=== PATIENT | male | born 1995 | race Caucasian/White ===

== ENCOUNTER 2016-11-08 10:54 | Observation (INO) | payer OTHER ==
[2016-11-08] MEDS ORDERED: Aspirin Low Dose CHEW TAB* 81 MG PO ONE (11:20)
[2016-11-08] MEDS ORDERED: LORazepam INJ* 2 MG/ML 1 ML VIAL IV PUSH ONE ×2 (11:21→14:30)
--- NOTE | 2016-11-08 11:47 | RAD ---
INDICATION: Chest pressure and numbness COMPARISON: None. TECHNIQUE: Single AP portable view of the chest was obtained. FINDINGS: Image quality is compromised due to the relative inferiority of a portable chest x-ray. The heart and mediastinum exhibit normal size and contour. The lungs are grossly clear. There is no evidence of a large pleural effusion. Visualized bones are normal for the patient's age. IMPRESSION: No radiographic evidence for acute cardiopulmonary abnormality on this portable chest x-ray.
[2016-11-08 12:18] LABS: Hematocrit 46 % (42-52); Hemoglobin 16.6 g/dl (14.0-18.0); Mean Corpuscular HGB Conc 36 g/dl (31-36); Mean Corpuscular Hemoglobin 31 pg (27-31); Mean Corpuscular Volume 85 fL (80-94); Mean Platelet Volume 7 um3 (7.4-10.4); Red Blood Count 5.42 10^6/ul (4.0-5.4); Red Cell Distribution Width 13 % (10.5-15); White Blood Count 10.4 10^3/ul (3.5-10.8)
[2016-11-08 12:31] LABS: Albumin 4.6 g/dL (3.2-5.2); BUN/Creatinine Ratio 14.3 (8-20); Calcium 9.5 mg/dL (8.6-10.3); EGFR African American 107.5 (>60); EGFR Non-African American 83.6 (>60); Potassium 3.4 mmol/L (3.5-5.0); Total Bilirubin 0.6 mg/dL (0.2-1.0); Total Protein 7.6 g/dL (6.4-8.9)
[2016-11-08 12:32] LABS: Comments Flag Yes
--- NOTE | 2016-11-08 18:20 | PN ---
Hospitalist Progress Note HOSPITALIST ADDENDUM Case reviewed and d/w Nhan COLLINS. Mr. Chandra is a 21yo M who presented to ED with c/o chest pain after using cocaine last night. EKG and labs reviewed. Agree with current management.
--- NOTE | 2016-11-08 19:09 | HP ---
ADMISSION HISTORY AND PHYSICAL: DATE OF ADMISSION: 11/08/16 PRIMARY CARE PROVIDER: Ángel Steel MD. ADMITTING PROVIDER: KARINA Flor. SUPERVISING PHYSICIAN: Shruti Durand MD.* (DICTATED BY KARINA FLOR) CHIEF COMPLAINT: Chest pain. HISTORY OF PRESENT ILLNESS: This is an otherwise healthy 21-year-old male who presented to the emergency department with complaints of chest pain after using cocaine. The patient's last cocaine ingestion was at approximately 5:30 this morning and chest pain stated abruptly at 10:30 this morning. He received 1 mg of Ativan in the emergency department with some improvement in his chest pain. He reported some associated shortness of breath and nausea, those symptoms have since ceased. The patient denies any abdominal pain or vomiting. At this time, the patient reports he is still having some mild chest discomfort but it has mostly resolved. He reports that he is otherwise asymptomatic. PAST MEDICAL HISTORY: None. PAST SURGICAL HISTORY: Prior ACL and meniscus repair. HOME MEDICATIONS: None. FAMILY HISTORY: The patient has significant family history of heart disease. Maternal grandparents had premature coronary artery disease. SOCIAL HISTORY: The patient admits to prior cocaine use. This was his third time using and does use occasional alcohol but states it is not generally not in large quantities. He denies any other substance use. REVIEW OF SYSTEMS: As noted above in HPI, otherwise negative. PHYSICAL EXAMINATION GENERAL: This is a pleasant 21-year-old gentleman accompanied by his mother in no acute distress. INITIAL VITALS: Temperature 98.3 degrees Fahrenheit, pulse 100 beats per minute , respiratory rate 20 per minute, oxygen saturation 100% on room air, and blood pressure 162/91 mmHg. Most recent blood pressure from an hour ago had improved to 135/71 with a pulse of 88 beats per minute. HEENT: Head is normocephalic and atraumatic with moist mucous membranes. RESPIRATORY: Lungs are clear to auscultation without wheezes, crackles, or rhonchi. CARDIOVASCULAR: Heart has a regular rate and rhythm without murmurs, rubs, or gallops. ABDOMEN: Abdomen is soft and nontender to palpation. SKIN: Limited exam shows no concerning rashes or lesions. EXTREMITIES: No lower extremity edema. LABORATORY DATA: CBC shows white blood cell count of 10,400, hemoglobin of 16.6 g/dL, and platelet count of 277,000. Comprehensive metabolic panel shows a sodium of 132 mmol/L, potassium 3.4 mmol/L, serum bicarb of 24, BUN of 16, creatinine 1.12. Random glucose of 95 mg/dL. Lactic acid of 2.7. Initial troponin negative at 0. IMAGING: EKG shows sinus tachycardia without ischemic changes. Chest x-ray shows no acute disease. ASSESSMENT AND PLAN: This is a 21-year-old gentleman who has been otherwise healthy, is using cocaine with sudden onset chest pain. No EKG changes or elevated troponin. He is admitted for observation due to continued symptoms. 1. Chest pain secondary to cocaine abuse - no changes on initial EKG and initial troponin is negative. The patient's chest pain has improved but is still present slightly. I plan to cycle additional troponins and repeat an EKG. To give 1 additional mg of Ativan. If troponins remain negative, chest pain improves without EKG changes, we will plan to discharge home later this evening. 2. Cocaine abuse. The patient was counseled on potential life threatening effects of this drug but he is strongly discouraged from further use. 3. Code status - the patient is a full code. 4. Healthcare proxy is his mother. 5. DVT prophylaxis. The patient is at low risk and will not initiate any specific prophylactic measures other than encouraging regular ambulation. DISPOSITION: The patient is being admitted to observation status. Anticipate potential discharge for later this evening or tomorrow morning. KARINA FLOR CC: Ángel Steel MD * [id number]/[facility] #: [id number] JUNIOR
[2016-11-08 19:34] VITALS: BP 123/70
[2016-11-08 19:50] LABS: Benzodiazepine Urine Screen None Detected (None Detect)
--- NOTE | 2016-11-09 08:52 | DS ---
DISCHARGE SUMMARY: DATE OF ADMISSION: 11/08/16 DATE OF DISCHARGE: 11/08/16 PRIMARY CARE PROVIDER: Dr. Lee Steel. DISCHARGING PROVIDER: KARINA Flor. SUPERVISING PHYSICIAN: Dr. Miles Durand. * (DICTATED BY KARINA FLOR) PRIMARY DISCHARGE DIAGNOSIS: Chest pain secondary to cocaine use, without evidence of ischemia. DISCHARGE MEDICATIONS: Valtrex 500 mg p.o. daily as needed for herpes outbreak. HOSPITAL IMAGING: EKG shows normal sinus rhythm. Repeat EKG shows no ischemic changes. HOSPITAL COURSE: Please refer to H and P dictated earlier today. This is an otherwise healthy 21-year-old gentleman who presented to the emergency department with complaints of chest pain and admitted, and cocaine abuse. The patient's chest pain was persistent despite IV Ativan in the emergency department and request for admission for a period of observation. Initial troponin and EKG were benign. Serial troponin remains negative and repeat EKG remains negative for any ischemic changes. The patient received an additional dose of IV Ativan and his chest pain resolved. He was observed for a period of approximately 8 hours, at which point his chest pain did not return. The patient was counseled extensively in regards to substance use and his mother was present. DISPOSITION: The patient is being discharged home with his mother. He was counseled to please abstain from any further illicit substance abuse. No further followup is indicated at this time. We would recommend followup with his primary care provider regarding this hospital admission. KARINA FLOR CC: Dr. Lee Steel [id number]/[facility] #: [id number] [facility]
--- NOTE | 2016-11-09 22:18 | ED ---
Rodolfo Frias Rebecca, scribed for Dav Caputo MD on 11/08/16 at 1155 . HPI Chest Pain - HPI Summary HPI Summary: Pt is a 21 y/o M who presents to ED c/o CP. Pain began suddenly at 1045 this morning and has been constant since onset. Pain is midsternal without radiation , characterized as sharp and heavy and currently ranked 3/10. Sx aggravated and alleviated by nothing. Additionally c/o confusion/"foggy", near syncope and diffuse numbness. Denies LOC. Pt reports snorting cocaine last night, with the last use at 0530 this morning. Unsure of the exact amount, but he says it was " a lot." Has used cocaine 2x prior. He was also consuming EtOH last night, with the last drink at 0030 this morning. - History of Current Complaint Chief Complaint: EDChestPainROMI Time Seen by Provider: 11/08/16 11:20 Hx Obtained From: Patient Onset/Duration: Started Hours Ago - 1 hour ago, Still Present Time of Onset: 10:45 Timing: Constant Initial Severity: Moderate Current Severity: Mild Pain Intensity: 3 Pain Scale Used: 0-10 Numeric Chest Pain Location: Mid Sternal Chest Pain Radiates: No Aggravating Factor(s): Nothing Alleviating Factor(s): Nothing Associated Signs and Symptoms: Positive: Chest Pain, Numbness - Diffuse, Syncope - Near syncope; Denies LOC, Other: - confusion/"foggy" - Allergy/Home Medications Allergies/Adverse Reactions: Allergies Allergy/AdvReac Type Severity Reaction Status Date / Time No Known Allergies Allergy Verified 06/11/16 09:17 PMH/Surg Hx/FS Hx/Imm Hx Endocrine/Hematology History: Denies: Hx Diabetes, Hx Thyroid Disease Cardiovascular History: Denies: Hx Hypercholesterolemia, Hx Hypertension, Hx Pacemaker/ICD, Hx Peripheral Vascular Disease Respiratory History: Denies: Hx Asthma, Hx Chronic Obstructive Pulmonary Disease (COPD) GI History: Denies: Hx Ulcer History: Denies: Hx Renal Disease Musculoskeletal History: Denies: Hx Arthritis, Hx Rheumatoid Arthritis, Hx Osteoporosis, Hx Scoliosis Sensory History: Denies: Hx Cataracts, Hx Contacts or Glasses, Hx Glaucoma, Hx Hearing Aid Opthamlomology History: Denies: Hx Cataracts, Hx Contacts or Glasses, Hx Glaucoma Neurological History: Reports: Hx Headaches - 2 years ago, 1 week to recover Denies: Other Neuro Impairments/Disorders Psychiatric History: Denies: Hx Anxiety, Hx Depression, Hx Panic Disorder - Surgical History Surgery Procedure, Year, and Place: meniscus repair right knee 2013. ACL REPAIR RIGHT KNEE 2015 Infectious Disease History: No Infectious Disease History: Denies: Hx Clostridium Difficile, Hx Hepatitis, Hx Human Immunodeficiency Virus (HIV), Hx of Known/Suspected MRSA, Hx Shingles, Hx Tuberculosis, Hx Known/ Suspected VRE, Hx Known/Suspected VRSA, History Other Infectious Disease, Traveled Outside the [place] in Last 30 Days - Family History Known Family History: Positive: Cardiac Disease - Social History Alcohol Use: Occasionally Substance Use Type: Reports: Cocaine - 3x, Marijuana Smoking Status (MU): Never Smoked Tobacco Have You Smoked in the Last Year: No Review of Systems Negative: Fever, Chills Negative: Blurred Vision, Erythema Negative: Sore Throat Positive: Chest Pain - midsternal Negative: Abdominal Pain, Vomiting, Nausea Negative: dysuria, hematuria Negative: Myalgia, Edema Negative: Rash Neurological: Other - Confusion/"foggy" Positive: Numbness - Diffuse, Syncope - Near syncope; Negative LOC All Other Systems Reviewed And Are Negative: Yes Physical Exam - Summary Physical Exam Summary: Constitutional: Well-developed, Well-nourished, Alert, Hypertensive. (-) Distressed Skin: Warm, Dry HENT: Eyes: Conjunctiva normal Neck: Musculoskeletal ROM normal neck. (-) JVD, (-) Stridor, (-) Tracheal deviation Cardio: Rhythm regular, rate tachycardic, Heart sounds normal; Intact distal pulses; The pedal pulses are 2+ and symmetric. Radial pulses are 2+ and symmetric. (-) Murmur Pulmonary/Chest wall: Effort normal. (-) Respiratory distress, (-) Wheezes, (-) Rales Abd: Soft, (-) Tenderness, (-) Distension, (-) Guarding, (-) Rebound Musculoskeletal: (-) Edema Lymph: (-) Cervical adenopathy Neuro: Alert, Oriented x3 Psych: Mood and affect Normal Triage Information Reviewed: Yes Vital Signs On Initial Exam: Initial Vitals Temp Pulse Resp BP Pulse Ox 98.3 F 100 20 162/91 100 11/08/16 11:16 11/08/16 11:16 11/08/16 11:16 02/11/17 11:16 11/08/16 11:16 Vital Signs Reviewed: Yes Diagnostics - Vital Signs Vital Signs Temp Pulse Resp BP Pulse Ox 11/08/16 11:16 98.3 F 100 20 162/91 100 - Laboratory Result Diagrams: 11/08/16 12:05 11/08/16 12:05 Lab Statement: Any lab studies that have been ordered have been reviewed, and results considered in the medical decision making process. - Radiology CXR Xray Interpretation: No Acute Changes - No radiographic evidence for acute cardiopulmonary abnormality on this portable chest x-ray. Radiology Interpretation Completed By: Radiologist - EKG 1054 Cardiac Rate: Tachycardia - 111 bpm EKG Rhythm: Sinus Tachycardia EKG Interpretation: No STEMI Re-Evaluation - Re-Evaluation First Eval Re-Evaluation Time: 12:52 Change: Improved Comment: Sx have improved, CP is now 2/10. Chest Pain Course/Dx - Course Assessment/Plan: Pt is a 21 y/o M who presents to ED with a CC of CP for 1 hour s/p cocaine use. Additionally c/o confusion/"foggy", near syncope and diffuse numbness. Denies LOC. CXR reveals no acute pathology. Discussed care of pt with Dr. Spivey, hospitalist, who accepts pt for admission. Pt will be admitted with a dx of cocaine-induced CP. - Diagnoses Provider Diagnoses: Cocaine-induced chest pain - Provider Notifications Discussed Care Of Patient With: Dr. Spivey, hospitalist, who accepts pt for admission. Time Discussed With Above Provider: 12:49 Discharge - Discharge Plan Condition: Good Disposition: ADMITTED TO [facility] documentation as recorded by the Rodolfo fish Rebecca accurately reflects the service I personally performed and the decisions made by me, Dav Caputo MD.
== END 2016-11-08 20:15 | disposition home or self-care (01) ==
LOC: ED 10:54 → MEDTELE 12:50
PROVIDERS: ADMIT Internal Medicine; ATTEND Internal Medicine
DX: R07.9 Chest pain, unspecified (principal); F14.10 Cocaine abuse, uncomplicated; R00.0 Tachycardia, unspecified; R41.0 Disorientation, unspecified
CPT/HCPCS: 36415; 71010; 80053; 80307; 83605; 84484; 85025; 93005; 96374; 96376; 99283; A9270-GY; G0378; J2060

== ENCOUNTER 2016-11-13 10:45 | Emergency (ER) | payer OTHER ==
[2016-11-13] MEDS ORDERED: Aspirin Low Dose CHEW TAB* 81 MG PO ONE (11:46)
[2016-11-13 11:57] LABS: Hematocrit 51 % (42-52); Hemoglobin 17.5 g/dl (14.0-18.0); Mean Corpuscular HGB Conc 34 g/dl (31-36); Mean Corpuscular Hemoglobin 30 pg (27-31); Mean Corpuscular Volume 87 fL (80-94); Mean Platelet Volume 7 um3 (7.4-10.4); Red Blood Count 5.88 10^6/ul (4.0-5.4); Red Cell Distribution Width 13 % (10.5-15); White Blood Count 10.6 10^3/ul (3.5-10.8)
[2016-11-13 12:09] LABS: ALT 23 U/L (7-52); AST 40 U/L (13-39); Albumin 5.1 g/dL (3.2-5.2); Alkaline Phosphatase 52 U/L (34-104); Anion Gap 8 mmol/L (2-11); Blood Urea Nitrogen 14 mg/dL (6-24); CO2 Carbon Dioxide 27 mmol/L (22-32); Calcium 10.2 mg/dL (8.6-10.3); Chloride 100 mmol/L (101-111); Creatine Kinase 1110 U/L (10-223); EGFR African American 112.1 (>60); EGFR Non-African American 87.2 (>60); Globulin 3.1 g/dL (2-4); Glucose 82 mg/dL (70-100); Potassium 3.5 mmol/L (3.5-5.0); Sodium 135 mmol/L (133-145); Total Protein 8.2 g/dL (6.4-8.9)
[2016-11-13] MEDS: NS 0.9% 1000 ML* 2,000 ML IV ONE ×2 (12:09→13:30)
[2016-11-13 12:13] LABS: Benzodiazepine Urine Screen None Detected (None Detect)
[2016-11-13] MEDS ORDERED: LORazepam INJ* 2 MG/ML 1 ML VIAL IV PUSH ONE (12:19)
[2016-11-13] MEDS ORDERED: NS 0.9% 1000 ML* 1,000 ML IV ONE (12:20)
[2016-11-13] MEDS ORDERED: LORazepam INJ* 2 MG/ML 1 ML VIAL ONE (12:21)
--- NOTE | 2016-11-13 12:45 | RAD ---
HISTORY: Chest pain COMPARISONS: November 08, 2016 VIEWS:1: Single frontal portable view of the chest at 12:15 PM FINDINGS: LINES AND TUBES: None. CARDIOMEDIASTINAL SILHOUETTE: The cardiomediastinal silhouette is normal for portable technique. PLEURA: The costophrenic angles are sharp. No pleural abnormalities are noted. LUNG PARENCHYMA: The lungs are clear. ABDOMEN: The upper abdomen is clear. There is no subphrenic gas. BONES AND SOFT TISSUES: No bone or soft tissue abnormalities are noted. IMPRESSION: NO ACTIVE CARDIOPULMONARY DISEASE.
[2016-11-13 12:52] LABS: Alcohol < 10 mg/dL (<10)
--- NOTE | 2016-11-13 15:51 | ED ---
Rob Frias Matthew, scribed for Musa Monroe MD on 11/13/16 at 1219 . HPI Chest Pain - HPI Summary HPI Summary: A 21 y/o male presents to the ED with constant chest pain since 09:00 this morning. The patient states that he did cocaine at 03:00 this morning. The chest pain is rated 4/10 in severity, described as burning at onset and dull currently, and minimally radiates into the left arm. Associated symptoms include SOB and fatigue. The patient denies back pain, vomiting, nausea, and diaphoresis. Since onset, the chest pain has partially subsided. The pain is unaffected by deep breaths. He has been doing cocaine 2x weekly for the last 3 months. He has also been having intermittent epistaxis. - History of Current Complaint Chief Complaint: EDChestPainROMI Time Seen by Provider: 11/13/16 11:28 Hx Obtained From: Patient Onset/Duration: Started Hours Ago, Atraumatic, Still Present Timing: Constant Initial Severity: Moderate Current Severity: Mild Pain Intensity: 4 Pain Scale Used: 0-10 Numeric Chest Pain Radiates: Yes Chest Pain Radiates To:: Arm - LT; Minimally Character: Burning, Dull/Aching Aggravating Factor(s): Nothing Alleviating Factor(s): Nothing Associated Signs and Symptoms: Positive: Chest Pain, Shortness of Breath, Other : - Fatigue. Negative: Diaphoresis, Nausea, Back Pain - Allergy/Home Medications Allergies/Adverse Reactions: Allergies Allergy/AdvReac Type Severity Reaction Status Date / Time No Known Allergies Allergy Verified 06/11/16 09:17 PMH/Surg Hx/FS Hx/Imm Hx Endocrine/Hematology History: Denies: Hx Diabetes, Hx Thyroid Disease Cardiovascular History: Denies: Hx Hypercholesterolemia, Hx Hypertension, Hx Pacemaker/ICD, Hx Peripheral Vascular Disease Respiratory History: Denies: Hx Asthma, Hx Chronic Obstructive Pulmonary Disease (COPD) GI History: Denies: Hx Ulcer History: Denies: Hx Renal Disease Musculoskeletal History: Denies: Hx Arthritis, Hx Rheumatoid Arthritis, Hx Osteoporosis, Hx Scoliosis Sensory History: Denies: Hx Cataracts, Hx Contacts or Glasses, Hx Glaucoma, Hx Hearing Aid Opthamlomology History: Denies: Hx Cataracts, Hx Contacts or Glasses, Hx Glaucoma Neurological History: Reports: Hx Headaches - 2 years ago, 1 week to recover Denies: Other Neuro Impairments/Disorders Psychiatric History: Denies: Hx Anxiety, Hx Depression, Hx Panic Disorder - Surgical History Surgery Procedure, Year, and Place: meniscus repair right knee 2013. ACL REPAIR RIGHT KNEE 2015 Infectious Disease History: No Infectious Disease History: Denies: Hx Clostridium Difficile, Hx Hepatitis, Hx Human Immunodeficiency Virus (HIV), Hx of Known/Suspected MRSA, Hx Shingles, Hx Tuberculosis, Hx Known/ Suspected VRE, Hx Known/Suspected VRSA, History Other Infectious Disease, Traveled Outside the [place] in Last 30 Days - Family History Known Family History: Positive: Cardiac Disease - Social History Alcohol Use: Occasionally Alcohol Amount: 4-5 drinks 1-2 days a week Substance Use Type: Reports: Cocaine, Marijuana Substance Use Comment - Amount & Last Used: 11/13/16 Smoking Status (MU): Never Smoked Tobacco Have You Smoked in the Last Year: No Review of Systems Positive: Fatigue. Negative: Skin Diaphoresis Eyes: Negative ENT: Negative Positive: Chest Pain Positive: Shortness Of Breath Positive: Nausea. Negative: Vomiting Genitourinary: Negative Musculoskeletal: Negative Negative: Myalgia - back pain Skin: Negative Neurological: Negative Psychological: Normal All Other Systems Reviewed And Are Negative: Yes Physical Exam - Summary Physical Exam Summary: The patient is well-nourished in no acute distress and in no acute pain. The skin is warm and dry and skin color reflects adequate perfusion. HEENT: The head is normocephalic and atraumatic. The pupils are equal and reactive. The conjunctivae are clear and without drainage. Nares are patent and without drainage. Mouth reveals moist mucous membranes and the throat is without erythema and exudate. The external ears are intact. The ear canals are patent and without drainage. The tympanic membranes are intact. Neck is supple with full range of motion and non-tender. There are no carotid bruits. There is no neck vein distension. Respiratory: Chest is non-tender. Lungs are clear to auscultation and breath sounds are symmetrical and equal. Cardiovascular: Hear is regular rate and rhythm. There is no murmur or rub auscultated. There is no peripheral edema and pulses are symmetrical and equal. Abdomen: The abdomen is soft and non-tender. There are normal bowel sounds heard in all four quadrants and there is no organomegaly palpated. No CVA tenderness. Musculoskeletal: There is no back pain noted. Extremities are non-tender with full range of motion. There is good capillary refill. There is no peripheral edema or calf tenderness elicited. Neurological: Patient is alert and oriented to person, place and time. The patient has symmetrical motor strength in all four extremities. Cranial nerves are grossly intact. Deep tendon reflexes are symmetrical and equal in all four extremities. Psychiatric: The patient has an appropriate affect and does not exhibit any anxiety or depression. Triage Information Reviewed: Yes Vital Signs On Initial Exam: Initial Vitals Temp Pulse Resp BP Pulse Ox 98.2 F 147 20 197/106 98 11/13/16 10:46 11/13/16 10:46 11/13/16 10:46 11/13/16 10:46 11/13/16 10:46 Vital Signs Reviewed: Yes - Citlali Coma Scale Coma Scale Total: 15 Diagnostics - Vital Signs Vital Signs Temp Pulse Resp BP Pulse Ox 11/13/16 11:15 98.2 F 92 22 154/95 100 11/13/16 10:46 98.2 F 147 20 197/106 98 - Laboratory Lab Results: Lab Results 11/13/16 11/13/16 11/13/16 Range/Units 11:02 11:02 11:02 WBC 10.6 (3.5-10.8) 10^3/ul RBC 5.88 H (4.0-5.4) 10^6/ul Hgb 17.5 (14.0-18.0) g/dl Hct 51 (42-52) % MCV 87 (80-94) fL MCH 30 (27-31) pg MCHC 34 (31-36) g/dl RDW 13 (10.5-15) % Plt Count 351 (150-450) 10^3/ul MPV 7 L (7.4-10.4) um3 Neut % (Auto) 66.0 (38-83) % Lymph % (Auto) 26.4 (25-47) % Caldwell % (Auto) 6.5 (1-9) % Eos % (Auto) 0.3 (0-6) % Baso % (Auto) 0.8 (0-2) % Absolute Neuts (auto) 7.0 (1.5-7.7) 10^3/ul Absolute Lymphs (auto) 2.8 (1.0-4.8) 10^3/ul Absolute Monos (auto) 0.7 (0-0.8) 10^3/ul Absolute Eos (auto) 0 (0-0.6) 10^3/ul Absolute Basos (auto) 0.1 (0-0.2) 10^3/ul Absolute Nucleated RBC 0.02 10^3/ul Nucleated RBC % 0.2 Sodium 135 (133-145) mmol/L Potassium 3.5 (3.5-5.0) mmol/L Chloride 100 L (101-111) mmol/L Carbon Dioxide 27 (22-32) mmol/L Anion Gap 8 (2-11) mmol/L BUN 14 (6-24) mg/dL Creatinine 1.08 (0.67-1.17) mg/dL Est GFR ( Amer) 112.1 (>60) Est GFR (Non-Af Amer) 87.2 (>60) BUN/Creatinine Ratio 13.0 (8-20) Glucose 82 (70-100) mg/dL Lactic Acid 1.2 (0.5-2.0) mmol/L Calcium 10.2 (8.6-10.3) mg/dL Total Bilirubin 0.80 (0.2-1.0) mg/dL AST 40 H (13-39) U/L ALT 23 (7-52) U/L Alkaline Phosphatase 52 (34-104) U/L Total Creatine Kinase 1110 H (10-223) U/L Troponin I 0.00 (<0.04) ng/mL Total Protein 8.2 (6.4-8.9) g/dL Albumin 5.1 (3.2-5.2) g/dL Globulin 3.1 (2-4) g/dL Albumin/Globulin Ratio 1.6 (1-3) Urine Opiates Screen (None Detect) Ur Barbiturates Screen (None Detect) Ur Phencyclidine Scrn (None Detect) Ur Amphetamines Screen (None Detect) U Benzodiazepines Scrn (None Detect) Urine Cocaine Screen (None Detect) U Cannabinoids Screen (None Detect) 11/13/16 Range/Units 11:02 WBC (3.5-10.8) 10^3/ul RBC (4.0-5.4) 10^6/ul Hgb (14.0-18.0) g/dl Hct (42-52) % MCV (80-94) fL MCH (27-31) pg MCHC (31-36) g/dl RDW (10.5-15) % Plt Count (150-450) 10^3/ul MPV (7.4-10.4) um3 Neut % (Auto) (38-83) % Lymph % (Auto) (25-47) % Caldwell % (Auto) (1-9) % Eos % (Auto) (0-6) % Baso % (Auto) (0-2) % Absolute Neuts (auto) (1.5-7.7) 10^3/ul Absolute Lymphs (auto) (1.0-4.8) 10^3/ul Absolute Monos (auto) (0-0.8) 10^3/ul Absolute Eos (auto) (0-0.6) 10^3/ul Absolute Basos (auto) (0-0.2) 10^3/ul Absolute Nucleated RBC 10^3/ul Nucleated RBC % Sodium (133-145) mmol/L Potassium (3.5-5.0) mmol/L Chloride (101-111) mmol/L Carbon Dioxide (22-32) mmol/L Anion Gap (2-11) mmol/L BUN (6-24) mg/dL Creatinine (0.67-1.17) mg/dL Est GFR ( Amer) (>60) Est GFR (Non-Af Amer) (>60) BUN/Creatinine Ratio (8-20) Glucose (70-100) mg/dL Lactic Acid (0.5-2.0) mmol/L Calcium (8.6-10.3) mg/dL Total Bilirubin (0.2-1.0) mg/dL AST (13-39) U/L ALT (7-52) U/L Alkaline Phosphatase (34-104) U/L Total Creatine Kinase (10-223) U/L Troponin I (<0.04) ng/mL Total Protein (6.4-8.9) g/dL Albumin (3.2-5.2) g/dL Globulin (2-4) g/dL Albumin/Globulin Ratio (1-3) Urine Opiates Screen None detected (None Detect) Ur Barbiturates Screen None detected (None Detect) Ur Phencyclidine Scrn None detected (None Detect) Ur Amphetamines Screen None detected (None Detect) U Benzodiazepines Scrn None detected (None Detect) Urine Cocaine Screen Presumptive positive H (None Detect) U Cannabinoids Screen Presumptive positive H (None Detect) Result Diagrams: 11/13/16 11:02 11/13/16 11:02 Lab Statement: Any lab studies that have been ordered have been reviewed, and results considered in the medical decision making process. - Radiology CXR Xray Interpretation: No Acute Changes - IMPRESSION: NO ACTIVE CARDIOPULMONARY DISEASE. Radiology Interpretation Completed By: Radiologist - EKG 10:49 Cardiac Rate: Tachycardia - 117 bpm EKG Rhythm: Sinus Tachycardia 14:54 Cardiac Rate: NL - 80 bpm EKG Rhythm: Sinus Rhythm Chest Pain Course/Dx - Course Assessment/Plan: A 21 y/o male presents to the ED with constant chest pain since 09:00 this morning. The patient snorted cocaine at 3:00 this morning and had chest pain approximately 6 hours later at 09:00. Associated symptoms include SOB and fatigue. The patient denies back pain, vomiting, nausea, and diaphoresis. CXR shows no active cardiopulmonary disease. EKG shows sinus tachycardia at 117 bpm. Social work was consulted for this case. The patient's second troponin was 0.00 and the EKG showed NSR at 80 bpm. The patient will be discharged home and follow-up with his PCP. - Chest Pain Differential Diagnosis/HQI/PQRI: Acute RI, Other: - cocaine abuse - Diagnoses Provider Diagnoses: Chest pain, Cocaine abuse Discharge - Discharge Plan Condition: Stable Disposition: HOME Patient Education Materials: Chest Pain (ED), Cocaine Abuse (ED) Referrals: Lee Steel MD [Primary Care Provider] - 2 Days Additional Instructions: Please follow-up with your primary care physician. The documentation as recorded by the Rob fish Matthew accurately reflects the service I personally performed and the decisions made by , Musa Monroe MD.
[2016-11-13 16:02] VITALS: BP 124/67
== END 2016-11-13 16:00 | disposition home or self-care (01) ==
LOC: ED 10:45
DX: R07.9 Chest pain, unspecified (principal); F14.10 Cocaine abuse, uncomplicated; R06.02 Shortness of breath; R53.83 Other fatigue
CPT/HCPCS: 36415; 71010; 80053; 80307; 80320; 82550; 82553; 83605; 83880; 84484; 85025; 93005; 96361; 96374; 99283; A9270-GY; G0480; J2060

== ENCOUNTER 2016-12-21 17:39 | Emergency (ER) | payer OTHER ==
[2016-12-21] MEDS ORDERED: Ketorolac INJ* 30 MG/ML 1 ML VIAL IV ONE (18:08)
[2016-12-21 18:25] LABS: Hematocrit 45 % (42-52); Hemoglobin 15.8 g/dl (14.0-18.0); Mean Corpuscular HGB Conc 35 g/dl (31-36); Mean Corpuscular Hemoglobin 30 pg (27-31); Mean Corpuscular Volume 87 fL (80-94); Mean Platelet Volume 7 um3 (7.4-10.4); Red Blood Count 5.21 10^6/ul (4.0-5.4); Red Cell Distribution Width 14 % (10.5-15); White Blood Count 8.9 10^3/ul (3.5-10.8)
--- NOTE | 2016-12-21 18:29 | RAD ---
INDICATION: Chest pain in a former cocaine user. COMPARISON: Most recent comparison chest x-rays dated November 13, 2016 TECHNIQUE: PA and lateral views of the chest were obtained. FINDINGS: The heart and mediastinum are normal in size and contour. The lungs are grossly clear. There is no evidence of large pleural effusion. Visualized bones are normal for the patient's age. There is no radiographic evidence of free air beneath the diaphragm IMPRESSION: No radiographic evidence of acute cardiopulmonary disease.
[2016-12-21 18:42] LABS: Albumin 4.6 g/dL (3.2-5.2); BUN/Creatinine Ratio 11.3 (8-20); Calcium 9.3 mg/dL (8.6-10.3); EGFR African American 104.3 (>60); EGFR Non-African American 81.1 (>60); Globulin 2.5 g/dL (2-4); Potassium 3.8 mmol/L (3.5-5.0); Total Bilirubin 0.5 mg/dL (0.2-1.0); Total Protein 7.1 g/dL (6.4-8.9)
[2016-12-21 20:37] VITALS: BP 137/78
--- NOTE | 2016-12-23 07:34 | ED ---
Eliana Frias Erika, scribed for Max Kay MD on 12/21/16 at 1912 . HPI Chest Pain - HPI Summary HPI Summary: Patient is a 21-year-old male presenting to the ED with a CC of left anterior chest pain starting at 16:00 today. Onset occurred while patient was walking into a store. Patient describes the pain as sharp at first, and now aching/ dull. Pain was not aggravated by anything. Associated symptoms include lightheadedness and SOB. Patient denies nausea and diaphoresis. Patient reports that he felt like this may be a panic attack, but he has never had one before. Patient has a Hx substance use - patient was seen here about 5 weeks ago after cocaine abuse. He is concerned about lasting effects from the cocaine. He denies any recent cocaine use. Patient does not take any medication. - History of Current Complaint Chief Complaint: EDChestPainROMI Time Seen by Provider: 12/21/16 17:50 Hx Obtained From: Patient, Family/Resolution Manager - Mother Onset/Duration: Started Hours Ago, Atraumatic, Still Present Timing: Constant Current Severity: Moderate Pain Intensity: 6 Pain Scale Used: 0-10 Numeric Chest Pain Location: Left Anterior Character: Dull/Aching, Sharp/Stabbing Associated Signs and Symptoms: Positive: Shortness of Breath, Lightheadedness. Negative: Diaphoresis, Nausea - Allergy/Home Medications Allergies/Adverse Reactions: Allergies Allergy/AdvReac Type Severity Reaction Status Date / Time No Known Allergies Allergy Verified 12/21/16 17:42 PMH/Surg Hx/FS Hx/Imm Hx Endocrine/Hematology History: Denies: Hx Diabetes, Hx Thyroid Disease Cardiovascular History: Denies: Hx Hypercholesterolemia, Hx Hypertension, Hx Pacemaker/ICD, Hx Peripheral Vascular Disease Respiratory History: Denies: Hx Asthma, Hx Chronic Obstructive Pulmonary Disease (COPD) GI History: Denies: Hx Ulcer History: Denies: Hx Renal Disease Musculoskeletal History: Denies: Hx Arthritis, Hx Rheumatoid Arthritis, Hx Osteoporosis, Hx Scoliosis Sensory History: Denies: Hx Cataracts, Hx Contacts or Glasses, Hx Glaucoma, Hx Hearing Aid Opthamlomology History: Denies: Hx Cataracts, Hx Contacts or Glasses, Hx Glaucoma Neurological History: Reports: Hx Headaches - 2 years ago, 1 week to recover Denies: Other Neuro Impairments/Disorders Psychiatric History: Denies: Hx Anxiety, Hx Depression, Hx Panic Disorder - Surgical History Surgery Procedure, Year, and Place: meniscus repair right knee 2013. ACL REPAIR RIGHT KNEE 2014 Infectious Disease History: No Infectious Disease History: Denies: Hx Clostridium Difficile, Hx Hepatitis, Hx Human Immunodeficiency Virus (HIV), Hx of Known/Suspected MRSA, Hx Shingles, Hx Tuberculosis, Hx Known/ Suspected VRE, Hx Known/Suspected VRSA, History Other Infectious Disease, Traveled Outside the [place] in Last 30 Days - Family History Known Family History: Positive: Cardiac Disease - Social History Alcohol Use: Occasionally Alcohol Amount: 4-5 drinks 1-2 days a week Substance Use Type: Reports: Cocaine, Marijuana Substance Use Comment - Amount & Last Used: 11/13/16 last cocaine Hx Tobacco Use: No Smoking Status (MU): Never Smoked Tobacco Have You Smoked in the Last Year: No Review of Systems Negative: Skin Diaphoresis Positive: Chest Pain Positive: Shortness Of Breath Negative: Nausea Neurological: Other - lightheadedness All Other Systems Reviewed And Are Negative: Yes Physical Exam Triage Information Reviewed: Yes Vital Signs On Initial Exam: Initial Vitals Temp Pulse Resp BP Pulse Ox 97.5 F 110 20 149/85 100 12/21/16 17:42 12/21/16 17:42 12/21/16 17:42 12/21/16 17:42 12/21/16 17:42 Vital Signs Reviewed: Yes Appearance: Positive: Well-Appearing, No Pain Distress Skin: Positive: Warm, Skin Color Reflects Adequate Perfusion, Dry Head/Face: Positive: Normal Head/Face Inspection Eyes: Positive: Normal ENT: Positive: Normal ENT inspection Neck: Positive: Supple, Nontender Respiratory/Lung Sounds: Positive: Clear to Auscultation, Breath Sounds Present Cardiovascular: Positive: Tachycardia, Other - No murmur with valsalva or squat maneuvers Abdomen Description: Positive: Nontender, Soft Bowel Sounds: Positive: Present Musculoskeletal: Positive: Normal Neurological: Positive: Normal Psychiatric: Positive: Affect/Mood Appropriate Diagnostics - Vital Signs Vital Signs Temp Pulse Resp BP Pulse Ox 12/21/16 17:42 97.5 F 110 20 149/85 100 - Laboratory Lab Results: Lab Results 12/21/16 12/21/16 12/21/16 Range/Units 17:55 17:55 17:55 WBC 8.9 (3.5-10.8) 10^3/ul RBC 5.21 (4.0-5.4) 10^6/ul Hgb 15.8 (14.0-18.0) g/dl Hct 45 (42-52) % MCV 87 (80-94) fL MCH 30 (27-31) pg MCHC 35 (31-36) g/dl RDW 14 (10.5-15) % Plt Count 274 (150-450) 10^3/ul MPV 7 L (7.4-10.4) um3 Neut % (Auto) 68.3 (38-83) % Lymph % (Auto) 23.5 L (25-47) % [place] % (Auto) 6.3 (1-9) % Eos % (Auto) 0.7 (0-6) % Baso % (Auto) 1.2 (0-2) % Absolute Neuts (auto) 6.1 (1.5-7.7) 10^3/ul Absolute Lymphs (auto) 2.1 (1.0-4.8) 10^3/ul Absolute Monos (auto) 0.6 (0-0.8) 10^3/ul Absolute Eos (auto) 0.1 (0-0.6) 10^3/ul Absolute Basos (auto) 0.1 (0-0.2) 10^3/ul Absolute Nucleated RBC 0.01 10^3/ul Nucleated RBC % 0.2 D-Dimer, Quantitative (Less Than 230) ng/mL Sodium 138 (133-145) mmol/L Potassium 3.8 (3.5-5.0) mmol/L Chloride 102 (101-111) mmol/L Carbon Dioxide 26 (22-32) mmol/L Anion Gap 10 (2-11) mmol/L BUN 13 (6-24) mg/dL Creatinine 1.15 (0.67-1.17) mg/dL Est GFR ( Amer) 104.3 (>60) Est GFR (Non-Af Amer) 81.1 (>60) BUN/Creatinine Ratio 11.3 (8-20) Glucose 98 (70-100) mg/dL Lactic Acid 2.1 H* (0.5-2.0) mmol/L Calcium 9.3 (8.6-10.3) mg/dL Total Bilirubin 0.50 (0.2-1.0) mg/dL AST 33 (13-39) U/L ALT 26 (7-52) U/L Alkaline Phosphatase 49 (34-104) U/L Troponin I 0.00 (<0.04) ng/mL Total Protein 7.1 (6.4-8.9) g/dL Albumin 4.6 (3.2-5.2) g/dL Globulin 2.5 (2-4) g/dL Albumin/Globulin Ratio 1.8 (1-3) 12/21/16 Range/Units 17:55 WBC (3.5-10.8) 10^3/ul RBC (4.0-5.4) 10^6/ul Hgb (14.0-18.0) g/dl Hct (42-52) % MCV (80-94) fL MCH (27-31) pg MCHC (31-36) g/dl RDW (10.5-15) % Plt Count (150-450) 10^3/ul MPV (7.4-10.4) um3 Neut % (Auto) (38-83) % Lymph % (Auto) (25-47) % [place] % (Auto) (1-9) % Eos % (Auto) (0-6) % Baso % (Auto) (0-2) % Absolute Neuts (auto) (1.5-7.7) 10^3/ul Absolute Lymphs (auto) (1.0-4.8) 10^3/ul Absolute Monos (auto) (0-0.8) 10^3/ul Absolute Eos (auto) (0-0.6) 10^3/ul Absolute Basos (auto) (0-0.2) 10^3/ul Absolute Nucleated RBC 10^3/ul Nucleated RBC % D-Dimer, Quantitative 227 (Less Than 230) ng/mL Sodium (133-145) mmol/L Potassium (3.5-5.0) mmol/L Chloride (101-111) mmol/L Carbon Dioxide (22-32) mmol/L Anion Gap (2-11) mmol/L BUN (6-24) mg/dL Creatinine (0.67-1.17) mg/dL Est GFR ( Amer) (>60) Est GFR (Non-Af Amer) (>60) BUN/Creatinine Ratio (8-20) Glucose (70-100) mg/dL Lactic Acid (0.5-2.0) mmol/L Calcium (8.6-10.3) mg/dL Total Bilirubin (0.2-1.0) mg/dL AST (13-39) U/L ALT (7-52) U/L Alkaline Phosphatase (34-104) U/L Troponin I (<0.04) ng/mL Total Protein (6.4-8.9) g/dL Albumin (3.2-5.2) g/dL Globulin (2-4) g/dL Albumin/Globulin Ratio (1-3) Result Diagrams: 12/21/16 17:55 12/21/16 17:55 Lab Statement: Any lab studies that have been ordered have been reviewed, and results considered in the medical decision making process. - Radiology CXR Radiology Interpretation Completed By: Radiologist - IMPRESSION: No radiographic evidence of acute cardiopulmonary disease. - EKG 17:52 Cardiac Rate: NL - at 94 bpm EKG Rhythm: Sinus Rhythm Re-Evaluation - Re-Evaluation First Eval Re-Evaluation Time: 19:50 Comment: Discussed all results with patient and his mother. Answered all of their questions. Patient will be discharged at this time Chest Pain Course/Dx - Course Course Of Treatment: Abdoulaye's W/U was negative here and he denies any current cocaine use. He does, however admit that he used someone else's adderal to study for a test and this certainly could be related. I cautioned him against that. - Diagnoses Provider Diagnoses: Chest pain Discharge - Discharge Plan Condition: Stable Disposition: HOME Patient Education Materials: Chest Pain (ED) Referrals: Lee Steel MD [Primary Care Provider] - 2 Weeks Additional Instructions: Please follow up with your PCP The documentation as recorded by the Eliana fish Erika accurately reflects the service I personally performed and the decisions made by me, Max Kay MD.
== END 2016-12-21 20:37 | disposition home or self-care (01) ==
LOC: ED 17:39
DX: R07.9 Chest pain, unspecified (principal); R06.02 Shortness of breath; R42 Dizziness and giddiness
CPT/HCPCS: 36415; 71020; 80053; 83605; 84484; 85025; 85379; 93005; 96374; 99282; J1885

== ENCOUNTER → 2017-06-11 08:26 | Emergency (ER) | payer OTHER ==
[2017-06-11 09:31] VITALS: BP 128/74
== END | disposition home or self-care (01) ==
LOC: ED 08:26
DX: R07.9 Chest pain, unspecified (principal); Z53.21 Procedure and treatment not carried out due to patient leaving prior to being seen by health care provider
CPT/HCPCS: 93005; 99281

== ENCOUNTER 2017-06-24 07:23 | Emergency (ER) | payer OTHER ==
[2017-06-24] MEDS ORDERED: Aspirin Low Dose CHEW TAB* 81 MG PO ONE (08:04)
--- NOTE | 2017-06-24 08:36 | RAD ---
HISTORY: Shortness of breath COMPARISONS: December 21, 2016 VIEWS: 1: frontal portable view of the chest at 8:15 AM FINDINGS: LINES AND TUBES: None. CARDIOMEDIASTINAL SILHOUETTE: The cardiomediastinal silhouette is normal for portable technique. PLEURA: The costophrenic angles are sharp. No pleural abnormalities are noted. LUNG PARENCHYMA: The lungs are clear. ABDOMEN: The upper abdomen is clear. There is no subphrenic gas. BONES AND SOFT TISSUES: No bone or soft tissue abnormalities are noted. IMPRESSION: NO ACTIVE CARDIOPULMONARY DISEASE.
[2017-06-24 08:45] LABS: Hematocrit 45 % (42-52); Hemoglobin 15.9 g/dl (14.0-18.0); Mean Corpuscular HGB Conc 35 g/dl (31-36); Mean Corpuscular Hemoglobin 31 pg (27-31); Mean Corpuscular Volume 88 fL (80-94); Mean Platelet Volume 7 um3 (7.4-10.4); Red Blood Count 5.12 10^6/ul (4.0-5.4); Red Cell Distribution Width 13 % (10.5-15); White Blood Count 8.8 10^3/ul (3.5-10.8)
[2017-06-24 08:59] LABS: Albumin 4.6 g/dL (3.2-5.2); BUN/Creatinine Ratio 15.2 (8-20); Calcium 9.1 mg/dL (8.6-10.3); EGFR African American 134.9 (>60); EGFR Non-African American 104.9 (>60); Globulin 2.2 g/dL (2-4); Potassium 3.7 mmol/L (3.5-5.0); Total Bilirubin 0.9 mg/dL (0.2-1.0); Total Protein 6.8 g/dL (6.4-8.9)
[2017-06-24 09:46] LABS: TSH (Thyroid Stimulating Horm) 2.5 mcIU/mL (0.34-5.60)
[2017-06-24 10:41] VITALS: BP 121/64
--- NOTE | 2017-06-24 18:12 | ED ---
Katerina Frias Thomas, scribed for Jono Chairez MD on 06/24/17 at 0807 . Shortness of Breath - HPI Summary HPI Summary: The pt is a 21 y/o M presenting to the ED c/o mild SOB that began this AM. He has Hx of generalized anxiety disorder and says that he assumed that his SOB was secondary to this at first. He was a patient at [facility] [place] [facility] about a week ago for similar SOB. He says that he is on Alprazolam for his anxiety and his prior episodes of SOB are alleviated by taking Alprazolam. However, his SOB this AM did not lessen when he took Alprazolam, prompting an ED visit. He says that he is a little short of breath in the ED. He is satting 96. He also complains of disorientation for the last few days and a rash. He claims that this rash began today. Pt additionally c/o CP. Pt denies fevers, chills, cough. He claims that he last consumed alcohol yesterday at 23:30. - History of Current Complaint Chief Complaint: EDShortnessOfBreath Time Seen by Provider: 06/24/17 07:53 Hx Obtained From: Patient Onset/Duration: Lasting Hours - onset this AM, Still Present Timing: Constant Current Severity: Mild Dyspnea At: Rest Aggrevating Factors: Nothing Alleviating Factors: Nothing Associated Signs & Symptoms: Chest Pain Unrelated to Cough Related History: Similar Episode - Similar previous episodes secondary to his generalized anxiey disorder - Allergy/Home Medications Allergies/Adverse Reactions: Allergies Allergy/AdvReac Type Severity Reaction Status Date / Time No Known Allergies Allergy Verified 06/24/17 08:00 Home Medications: Home Medications ALPRAZolam TAB* [Xanax TAB*] 1 tab PO BID PRN 06/24/17 [History Confirmed ] Sertraline* [Zoloft*] 25 mg PO DAILY 06/24/17 [History Confirmed 06/24/17] PMH/Surg Hx/FS Hx/Imm Hx Previously Healthy: No Endocrine/Hematology History: Denies: Hx Diabetes, Hx Thyroid Disease Cardiovascular History: Denies: Hx Hypercholesterolemia, Hx Hypertension, Hx Pacemaker/ICD, Hx Peripheral Vascular Disease Respiratory History: Denies: Hx Asthma, Hx Chronic Obstructive Pulmonary Disease (COPD) GI History: Denies: Hx Ulcer History: Denies: Hx Renal Disease Musculoskeletal History: Denies: Hx Arthritis, Hx Rheumatoid Arthritis, Hx Osteoporosis, Hx Scoliosis Sensory History: Denies: Hx Cataracts, Hx Contacts or Glasses, Hx Glaucoma, Hx Hearing Aid Opthamlomology History: Denies: Hx Cataracts, Hx Contacts or Glasses, Hx Glaucoma Neurological History: Reports: Hx Headaches - 2 years ago, 1 week to recover Denies: Other Neuro Impairments/Disorders Psychiatric History: Reports: Hx Anxiety Denies: Hx Depression, Hx Panic Disorder - Surgical History Surgery Procedure, Year, and Place: meniscus repair right knee 2013. ACL REPAIR RIGHT KNEE 2014 Infectious Disease History: No Infectious Disease History: Denies: Hx Clostridium Difficile, Hx Hepatitis, Hx Human Immunodeficiency Virus (HIV), Hx of Known/Suspected MRSA, Hx Shingles, Hx Tuberculosis, Hx Known/ Suspected VRE, Hx Known/Suspected VRSA, History Other Infectious Disease, Traveled Outside the [place] in Last 30 Days - Family History Known Family History: Positive: Cardiac Disease - Social History Alcohol Use: Weekly Alcohol Amount: 2 drinks last night Substance Use Type: Reports: Cocaine, Marijuana Substance Use Comment - Amount & Last Used: 11/13/16 last cocaine and marijuana Hx Tobacco Use: No Smoking Status (MU): Former Smoker Have You Smoked in the Last Year: No Review of Systems Negative: Fever, Chills Positive: Chest Pain Positive: Shortness Of Breath - mild with onset this AM. Negative: Cough Neurological: Other - Disorientation for last few days All Other Systems Reviewed And Are Negative: Yes Physical Exam - Summary Physical Exam Summary: VITAL SIGNS: Reviewed. GENERAL: Patient is a well-developed and nourished male who is lying comfortable in the stretcher. Patient is not in any acute respiratory distress. There is the smell of alcohol on his breath. HEAD AND FACE: No signs of trauma. No ecchymosis, hematomas or skull depressions. No sinus tenderness. EYES: PERRLA, EOMI x 2, No injected conjunctiva, no nystagmus. EARS: Hearing grossly intact. Ear canals and tympanic membranes are within normal limits. MOUTH: Oropharynx within normal limits. NECK: Supple, trachea is midline, no adenopathy, no JVD, no carotid bruit, no c- spine tenderness, neck with full ROM. CHEST: Symmetric, no tenderness at palpation LUNGS: Clear to auscultation bilaterally. No wheezing or crackles. CVS: Regular rate and rhythm, S1 and S2 present, no murmurs or gallops appreciated. ABDOMEN: Soft, non-tender. No signs of distention. No rebound no guarding, and no masses palpated. Bowel sounds are normal. EXTREMITIES: FROM in all major joints, no edema, no cyanosis or clubbing. NEURO: Alert and oriented x 3. No acute neurological deficits. Speech is normal and follows commands. SKIN: Dry and warm Triage Information Reviewed: Yes Vital Signs On Initial Exam: Initial Vitals Temp Pulse Resp BP Pulse Ox 97 F 104 20 135/87 98 06/24/17 07:25 06/24/17 07:25 06/24/17 07:25 06/24/17 07:25 06/24/17 07:25 Vital Signs Reviewed: Yes - [place] Coma Scale Coma Scale Total: 15 Diagnostics - Vital Signs Vital Signs Temp Pulse Resp BP Pulse Ox 06/24/17 07:53 90 95 06/24/17 07:51 136/72 06/24/17 07:25 97 F 104 20 135/87 98 - Laboratory Lab Results: Lab Results 06/24/17 06/24/17 06/24/17 Range/Units 08:35 08:35 08:35 WBC 8.8 (3.5-10.8) 10^3/ul RBC 5.12 (4.0-5.4) 10^6/ul Hgb 15.9 (14.0-18.0) g/dl Hct 45 (42-52) % MCV 88 (80-94) fL MCH 31 (27-31) pg MCHC 35 (31-36) g/dl RDW 13 (10.5-15) % Plt Count 239 (150-450) 10^3/ul MPV 7 L (7.4-10.4) um3 Neut % (Auto) 64.7 (38-83) % Lymph % (Auto) 29.3 (25-47) % [place] % (Auto) 4.7 (1-9) % Eos % (Auto) 0.2 (0-6) % Baso % (Auto) 1.1 (0-2) % Absolute Neuts (auto) 5.7 (1.5-7.7) 10^3/ul Absolute Lymphs (auto) 2.6 (1.0-4.8) 10^3/ul Absolute Monos (auto) 0.4 (0-0.8) 10^3/ul Absolute Eos (auto) 0 (0-0.6) 10^3/ul Absolute Basos (auto) 0.1 (0-0.2) 10^3/ul Absolute Nucleated RBC 0.01 10^3/ul Nucleated RBC % 0.2 D-Dimer, Quantitative < 200 (Less Than 230) ng/mL Sodium 138 (133-145) mmol/L Potassium 3.7 (3.5-5.0) mmol/L Chloride 105 (101-111) mmol/L Carbon Dioxide 23 (22-32) mmol/L Anion Gap 10 (2-11) mmol/L BUN 14 (6-24) mg/dL Creatinine 0.92 (0.67-1.17) mg/dL Est GFR ( Amer) 134.9 (>60) Est GFR (Non-Af Amer) 104.9 (>60) BUN/Creatinine Ratio 15.2 (8-20) Glucose 84 (70-100) mg/dL Calcium 9.1 (8.6-10.3) mg/dL Total Bilirubin 0.90 (0.2-1.0) mg/dL AST 25 (13-39) U/L ALT 18 (7-52) U/L Alkaline Phosphatase 36 (34-104) U/L Total Protein 6.8 (6.4-8.9) g/dL Albumin 4.6 (3.2-5.2) g/dL Globulin 2.2 (2-4) g/dL Albumin/Globulin Ratio 2.1 (1-3) TSH 2.50 (0.34-5.60) mcIU/mL Result Diagrams: 06/24/17 08:35 06/24/17 08:35 Lab Statement: Any lab studies that have been ordered have been reviewed, and results considered in the medical decision making process. - Radiology CXR Xray Interpretation: No Acute Changes - No active cardiopulmonary disease. ED Physician has read this report and agrees. Radiology Interpretation Completed By: Radiologist - EKG 08:32 Cardiac Rate: NL - 82 BPM EKG Interpretation: Sinus rhythm. No ST elevations. Similar to previous EKG on 06/11/17. Course/Dx - Course Assessment/Plan: The pt is a 21 y/o M presenting to the ED c/o mild SOB that began this AM. He has Hx of generalized anxiety disorder and says that he assumed that his SOB was secondary to this at first. He was a patient at [facility] [place] [facility] about a week ago for similar SOB. He says that he is on Alprazolam for his anxiety and his prior episodes of SOB are alleviated by taking Alprazolam. However, his SOB this AM did not lessen when he took Alprazolam, prompting an ED visit. He says that he is a little short of breath in the ED. He is satting 96. He also complains of disorientation for the last few days and a rash. He claims that this rash began today. Pt additionally c/o CP. Pt denies fevers, chills, cough. He claims that he last consumed alcohol yesterday at 23: 30. Test results with no acute abnormality. D-dimer is less than 200. Therefore , I believe there is low suspicion for pulmonary embolism. The patient has been stable, no complaints, and is feeling better; therefore, I will discharge the patient home with follow up by PCP. - Diagnoses Differential Diagnosis/HQI/PQRI: Positive: Asthma, Bronchitis, Chest Wall Pain, Pneumonia Provider Diagnoses: SOB (shortness of breath), Anxiety Discharge - Discharge Plan Condition: Stable Disposition: HOME Patient Education Materials: Anxiety (ED), Dyspnea (ED) Referrals: Lee Steel MD [Primary Care Provider] - 3 Days Additional Instructions: Follow up with your primary care doctor in 3 days. Return to the emergency department for any new or worsening symptoms. The documentation as recorded by the Katerina fish Thomas accurately reflects the service I personally performed and the decisions made by me, Jono Chairez MD.
== END 2017-06-24 10:58 | disposition home or self-care (01) ==
LOC: ED 07:23
DX: R06.02 Shortness of breath (principal); F41.1 Generalized anxiety disorder; Z87.891 Personal history of nicotine dependence
CPT/HCPCS: 36415; 71010; 80053; 84443; 85025; 85379; 93005; 99283; A9270-GY

== ENCOUNTER 2017-07-01 17:38 | Emergency (ER) | payer OTHER ==
[2017-07-01] MEDS ORDERED: Ketorolac INJ* 30 MG/ML 1 ML VIAL IV ONE (19:33)
[2017-07-01] MEDS ORDERED: NS 0.9% 1000 ML* 2,000 ML IV ONE (19:33)
--- NOTE | 2017-07-01 20:10 | RAD ---
INDICATION: Left arm numbness COMPARISON: None. TECHNIQUE: Contiguous axial sections of the brain were obtained from the skull base to the vertex without contrast. FINDINGS: The ventricles, cisterns and sulci are within normal limits. The ferrer-white matter differentiation is adequately maintained and there is no sulcal effacement. No significant focal abnormality or mass effect is present. There is no evidence for intracranial hemorrhage. No significant focal osseous abnormality is present. The visualized portion of the paranasal sinuses and mastoid air cells appear clear. IMPRESSION: Normal CT of the brain.
--- NOTE | 2017-07-01 20:35 | RAD ---
INDICATION: Left chest pain COMPARISON: Most recent comparison chest x-rays dated June 24, 2017 TECHNIQUE: PA and lateral views of the chest were obtained. FINDINGS: The heart and mediastinum are normal in size and contour. The lungs are grossly clear. There is no evidence of large pleural effusion. Visualized bones are normal for the patient's age. There is no radiographic evidence of free air beneath the diaphragm IMPRESSION: No radiographic evidence of acute cardiopulmonary disease.
[2017-07-01 20:51] LABS: Hematocrit 44 % (42-52); Hemoglobin 15.5 g/dl (14.0-18.0); Mean Corpuscular HGB Conc 35 g/dl (31-36); Mean Corpuscular Hemoglobin 31 pg (27-31); Mean Corpuscular Volume 88 fL (80-94); Mean Platelet Volume 7 um3 (7.4-10.4); Red Blood Count 5.06 10^6/ul (4.0-5.4); Red Cell Distribution Width 13 % (10.5-15); White Blood Count 14.3 10^3/ul (3.5-10.8)
[2017-07-01 21:08] LABS: ALT 16 U/L (7-52); AST 24 U/L (13-39); Albumin 4.4 g/dL (3.2-5.2); Alkaline Phosphatase 39 U/L (34-104); Anion Gap 9 mmol/L (2-11); BUN/Creatinine Ratio 24.5 (8-20); Blood Urea Nitrogen 23 mg/dL (6-24); C Reactive Protein < 1.00 mg/L (< 5.00); CO2 Carbon Dioxide 25 mmol/L (22-32); Calcium 9.3 mg/dL (8.6-10.3); Chloride 101 mmol/L (101-111); EGFR African American 131.6 (>60); EGFR Non-African American 102.3 (>60); Globulin 2.4 g/dL (2-4); Glucose 101 mg/dL (70-100); Lipase 17 U/L (11.0-82.0); Magnesium 1.9 mg/dL (1.9-2.7); Sodium 135 mmol/L (133-145); Total Protein 6.8 g/dL (6.4-8.9)
[2017-07-01 21:19] LABS: Manual Entry Verification MER0007; Mono Internal Control QC Line Present
[2017-07-01 21:48] LABS: TSH (Thyroid Stimulating Horm) 1.37 mcIU/mL (0.34-5.60)
[2017-07-01] MEDS ORDERED: Azithromycin TAB* 250 MG PO ONE (22:17)
--- NOTE | 2017-07-01 22:22 | ED ---
Rodolfo Frias Rebecca, scribed for Seven Mitchell MD on 07/01/17 at 1927 . Complex/Multi-Sys Presentation - HPI Summary HPI Summary: Pt is a 21 y/o M who presents to ED with multiple complaints. Pt reports that today, upon waking up at approximately 0900, he began experiencing CP, diaphoresis, chills, nausea, SOB, palpitations characterized as fast, LUE numbness and feeling near syncopal. Confirms that he felt well yesterday. Upon onset of symptoms, pt went back to sleep until about 1700. Chest pain is midsternal, described as stabbing and has been intermittent since onset, at its worst described as severe and on triage was moderate, ranked 6/10. Sx aggravated and alleviated by nothing, unchanged by deep breaths and exertion. Additionally c/o cough, fatigue. Notes that for the last few weeks he has been experiencing episodes of confusion, described as "disorientation" as well as lightheadedness and irregular palpitations. Denies fever, abdominal pain, diarrhea, blood in stool, rhinorrhea, sore throat, ear pain and calf pain. No recent changes in bowel or bladder habits or tick bites, to his knowledge. Reports a torn labrum in the LUE. - History Of Current Complaint Chief Complaint: EDDysrhythmPalp Hx Obtained From: Patient Onset/Duration: Sudden Onset, Lasting Hours, Still Present Timing: Intermittent, Lasting: Severity Currently: Moderate - 6/10 Severity Initially: Severe Location: Pain At: - Midsternal chest Character: Sharp Aggravating Factor(s): Nothing Alleviating Factor(s): Nothing Associated Signs And Symptoms: Positive: SOB, Cough, Chest Pain, Palpitations, Nausea, Diaphoresis, Other - LUE numbness, near syncopal, fatigue. Negative: Diarrhea - Allergies/Home Medications Allergies/Adverse Reactions: Allergies Allergy/AdvReac Type Severity Reaction Status Date / Time No Known Allergies Allergy Verified 06/24/17 08:00 PMH/Surg Hx/FS Hx/Imm Hx Endocrine/Hematology History: Denies: Hx Diabetes, Hx Thyroid Disease Cardiovascular History: Denies: Hx Hypercholesterolemia, Hx Hypertension, Hx Pacemaker/ICD, Hx Peripheral Vascular Disease Respiratory History: Denies: Hx Asthma, Hx Chronic Obstructive Pulmonary Disease (COPD) GI History: Denies: Hx Ulcer History: Denies: Hx Renal Disease Musculoskeletal History: Denies: Hx Arthritis, Hx Rheumatoid Arthritis, Hx Osteoporosis, Hx Scoliosis Sensory History: Denies: Hx Cataracts, Hx Contacts or Glasses, Hx Glaucoma, Hx Hearing Aid Opthamlomology History: Denies: Hx Cataracts, Hx Contacts or Glasses, Hx Glaucoma Neurological History: Reports: Hx Headaches - 2 years ago, 1 week to recover Denies: Other Neuro Impairments/Disorders Psychiatric History: Reports: Hx Anxiety Denies: Hx Depression, Hx Panic Disorder - Surgical History Surgery Procedure, Year, and Place: meniscus repair right knee 2013. ACL REPAIR RIGHT KNEE 2014 Infectious Disease History: Yes Infectious Disease History: Denies: Hx Clostridium Difficile, Hx Hepatitis, Hx Human Immunodeficiency Virus (HIV), Hx of Known/Suspected MRSA, Hx Shingles, Hx Tuberculosis, Hx Known/ Suspected VRE, Hx Known/Suspected VRSA, History Other Infectious Disease, Traveled Outside the [place] in Last 30 Days - Family History Known Family History: Positive: Cardiac Disease - Social History Alcohol Use: Weekly Alcohol Amount: 2 drinks last night Substance Use Type: Reports: Cocaine, Marijuana Substance Use Comment - Amount & Last Used: 11/13/16 last cocaine and marijuana- denies current use Hx Tobacco Use: No Smoking Status (MU): Former Smoker Have You Smoked in the Last Year: No Review of Systems Positive: Chills, Fatigue, Skin Diaphoresis. Negative: Fever Negative: Sore Throat, Ear Ache, Nasal Discharge Positive: Palpitations, Chest Pain Positive: Shortness Of Breath, Cough Positive: Nausea. Negative: Abdominal Pain, Diarrhea Positive: other - NEGATIVE: Blood in stool Positive: Other - NEGATIVE: Calf pain Neurological: Other - Intermittent episodes of confusion and lightheadedness for the last few weeks Positive: Numbness - LUE numbness, Syncope - Near syncopal All Other Systems Reviewed And Are Negative: Yes Physical Exam - Summary Physical Exam Summary: General: well-appearing, no pain distress Skin: warm, color reflects adequate perfusion, dry Head: normal Eyes: EOMI, MEJIA ENT: normal Neck: supple, nontender Respiratory: CTA, breath sounds present Cardiovascular: RRR Abdomen: soft, nontender Bowel: present Musculoskeletal: normal, strength/ROM intact Neurological: motor intact, A&O x3, reports decreased sensation of the lower left arm, though he has good pulses distally and good capillary refill Psychological: affect/mood appropriate NIH: 1 GCS: 15 Triage Information Reviewed: Yes Vital Signs On Initial Exam: Initial Vitals Temp Pulse Resp BP Pulse Ox 96.9 F 99 20 131/81 100 07/01/17 17:45 07/01/17 17:45 07/01/17 17:45 07/01/17 17:45 07/01/17 17:45 Vital Signs Reviewed: Yes - [place]ali Coma Scale Best Eye Response: 4 - Spontaneous Best Motor Response: 6 - Obeys Commands Best Verbal Response: 5 - Oriented Coma Scale Total: 15 Diagnostics - Vital Signs Vital Signs Temp Pulse Resp BP Pulse Ox 07/01/17 17:45 96.9 F 99 20 131/81 100 - Laboratory Lab Results: Lab Results 07/01/17 07/01/17 07/01/17 Range/Units 20:28 20:28 20:28 WBC 14.3 H (3.5-10.8) 10^3/ul RBC 5.06 (4.0-5.4) 10^6/ul Hgb 15.5 (14.0-18.0) g/dl Hct 44 (42-52) % MCV 88 (80-94) fL MCH 31 (27-31) pg MCHC 35 (31-36) g/dl RDW 13 (10.5-15) % Plt Count 241 (150-450) 10^3/ul MPV 7 L (7.4-10.4) um3 Neut % (Auto) 86.6 H (38-83) % Lymph % (Auto) 8.6 L (25-47) % Reeves % (Auto) 4.4 (1-9) % Eos % (Auto) 0.1 (0-6) % Baso % (Auto) 0.3 (0-2) % Absolute Neuts (auto) 12.4 H (1.5-7.7) 10^3/ul Absolute Lymphs (auto) 1.2 (1.0-4.8) 10^3/ul Absolute Monos (auto) 0.6 (0-0.8) 10^3/ul Absolute Eos (auto) 0 (0-0.6) 10^3/ul Absolute Basos (auto) 0 (0-0.2) 10^3/ul Absolute Nucleated RBC 0 10^3/ul Nucleated RBC % 0 INR (Anticoag Therapy) 1.02 (0.89-1.11) D-Dimer, Quantitative < 200 (Less Than 230) ng/mL Sodium (133-145) mmol/L Potassium (3.5-5.0) mmol/L Chloride (101-111) mmol/L Carbon Dioxide (22-32) mmol/L Anion Gap (2-11) mmol/L BUN (6-24) mg/dL Creatinine (0.67-1.17) mg/dL Est GFR ( Amer) (>60) Est GFR (Non-Af Amer) (>60) BUN/Creatinine Ratio (8-20) Glucose (70-100) mg/dL Calcium (8.6-10.3) mg/dL Magnesium (1.9-2.7) mg/dL Total Bilirubin (0.2-1.0) mg/dL AST (13-39) U/L ALT (7-52) U/L Alkaline Phosphatase (34-104) U/L Troponin I (<0.04) ng/mL C-Reactive Protein (< 5.00) mg/L Total Protein (6.4-8.9) g/dL Albumin (3.2-5.2) g/dL Globulin (2-4) g/dL Albumin/Globulin Ratio (1-3) Lipase (11.0-82.0) U/L TSH (0.34-5.60) mcIU/mL Monoscreen Negative (Negative) 07/01/17 Range/Units 20:28 WBC (3.5-10.8) 10^3/ul RBC (4.0-5.4) 10^6/ul Hgb (14.0-18.0) g/dl Hct (42-52) % MCV (80-94) fL MCH (27-31) pg MCHC (31-36) g/dl RDW (10.5-15) % Plt Count (150-450) 10^3/ul MPV (7.4-10.4) um3 Neut % (Auto) (38-83) % Lymph % (Auto) (25-47) % Reeves % (Auto) (1-9) % Eos % (Auto) (0-6) % Baso % (Auto) (0-2) % Absolute Neuts (auto) (1.5-7.7) 10^3/ul Absolute Lymphs (auto) (1.0-4.8) 10^3/ul Absolute Monos (auto) (0-0.8) 10^3/ul Absolute Eos (auto) (0-0.6) 10^3/ul Absolute Basos (auto) (0-0.2) 10^3/ul Absolute Nucleated RBC 10^3/ul Nucleated RBC % INR (Anticoag Therapy) (0.89-1.11) D-Dimer, Quantitative (Less Than 230) ng/mL Sodium 135 (133-145) mmol/L Potassium 4.0 (3.5-5.0) mmol/L Chloride 101 (101-111) mmol/L Carbon Dioxide 25 (22-32) mmol/L Anion Gap 9 (2-11) mmol/L BUN 23 (6-24) mg/dL Creatinine 0.94 (0.67-1.17) mg/dL Est GFR ( Amer) 131.6 (>60) Est GFR (Non-Af Amer) 102.3 (>60) BUN/Creatinine Ratio 24.5 H (8-20) Glucose 101 H (70-100) mg/dL Calcium 9.3 (8.6-10.3) mg/dL Magnesium 1.9 (1.9-2.7) mg/dL Total Bilirubin 0.70 (0.2-1.0) mg/dL AST 24 (13-39) U/L ALT 16 (7-52) U/L Alkaline Phosphatase 39 (34-104) U/L Troponin I 0.00 (<0.04) ng/mL C-Reactive Protein < 1.00 (< 5.00) mg/L Total Protein 6.8 (6.4-8.9) g/dL Albumin 4.4 (3.2-5.2) g/dL Globulin 2.4 (2-4) g/dL Albumin/Globulin Ratio 1.8 (1-3) Lipase 17 (11.0-82.0) U/L TSH 1.37 (0.34-5.60) mcIU/mL Monoscreen (Negative) Result Diagrams: 07/01/17 20:28 07/01/17 20:28 Lab Statement: Any lab studies that have been ordered have been reviewed, and results considered in the medical decision making process. - Radiology CXR Xray Interpretation: No Acute Changes - No radiographic evidence of acute cardiopulmonary disease. ED physician reviewed radiology report and agrees. Radiology Interpretation Completed By: Radiologist - CT Brain CT CT Interpretation: No Acute Changes - Normal CT of the brain. ED physician reviewed radiology report and agrees. CT Interpretation Completed By: Radiologist - EKG 1752 Cardiac Rate: NL - 99 bpm EKG Rhythm: Sinus Rhythm ST Segment: Normal Ectopy: None National Institutes Of Health - NIH Scale Level of Consciousness: Alert/Keenly Responsive Ask Patient the Month and His/Her Age: Both Correct Ask Pt to Open/Close Eyes and Supply Assistant/Release Non-Paretic Hand: Both Correctly Best Gaze (Only Horizontal Eye Movement): Normal Visual Field Testing: No Visual Loss Facial Paresis-Pt to Smile & Close Eyes or Grimace Symmetry: Normal/Symmetrical Motor Function - Right Arm: No Drift-Holds 10 Seconds Motor Function - Left Arm: No Drift-Holds 10 Seconds Motor Function - Right Leg: No Drift-Holds 10 Seconds Motor Function - Left Leg: No Drift-Holds 10 Seconds Limb Ataxia-Must be out of Proportion to Weakness Present: Absent Sensory (Use Pinprick to Test Arms/Legs/Trunk/Face): Pinprick Less on Affected - Reports decreased sensation on the left lower arm Best Language (Describe Picture, Name Items): No Aphasia Dysarthria (Read Several Words): Normal Extinction and Inattention: No Abnormality Total Score: 1 Re-Evaluation - Re-Evaluation First Eval Re-Evaluation Time: 22:05 Change: Improved Comment: Pt's sx have improved. Reviewed results with thept. Complex Multi-Symp Course/Dx Course Of Treatment: Pt medications reviewed this visit. BP noted and advised to f/u with PCP. CHEST PAIN IMPROVED AFTER TORADOL. CHEST PAIN STARTED AT 9AM , NEGATIVE TROPONIN 11 1/2 HOURS LATER. DISCUSSED RESULTS WITH PATIENT/FATHER. RX ZPAC. TAKE IBUPROFEN FOR THE PAIN. F/U PMD; RETURN IF WORSE. - Diagnoses Provider Diagnoses: Chest pain, Bronchitis, Arm paresthesia, left, Palpitations Discharge - Discharge Plan Condition: Stable Disposition: HOME Prescriptions: Azithromycin TAB* [Zithromax TAB (Z-JORDAN) 250 mg #6 tabs] 250 mg PO DAILY #4 tab Patient Education Materials: Chest Pain (ED), Palpitations (ED), Acute Bronchitis (ED), Paresthesia (ED) Referrals: Lee Steel MD [Primary Care Provider] - Additional Instructions: FOLLOW UP WITH YOUR DOCTOR. TAKE IBUPROFEN 600MG EVERY 6 HOURS WHILE AWAKE NEEDED FOR YOUR CHEST PAIN. RETURN TO THE EMERGENCY DEPARTMENT FOR ANY WORSENING OF YOUR CONDITION; PAIN, SHORTNESS OF BREATH, YOU FEEL ILL OR QUESTIONS OR CONCERNS. The documentation as recorded by the Rodolfo fish Rebecca accurately reflects the service I personally performed and the decisions made by me, Seven Mitchell MD.
[2017-07-01 22:27] VITALS: BP 117/70
== END 2017-07-01 22:30 | disposition home or self-care (01) ==
LOC: ED 17:38
DX: J40 Bronchitis, not specified as acute or chronic (principal); R07.9 Chest pain, unspecified; R20.2 Paresthesia of skin; R00.2 Palpitations; R06.02 Shortness of breath; R05 Cough; R11.0 Nausea; Z87.891 Personal history of nicotine dependence
CPT/HCPCS: 36415; 70450; 71020; 80053; 83690; 83735; 84443; 84484; 85025; 85379; 85610; 86140; 86308; 86618; 93005; 99284; A9270-GY; J1885

== ENCOUNTER 2017-08-27 14:10 | Emergency (ER) | payer OTHER ==
[2017-08-27 14:18] VITALS: BP 127/72
[2017-08-27] MEDS ORDERED: Ketorolac INJ* 30 MG/ML 1 ML VIAL IM ONE (15:20)
--- NOTE | 2017-08-27 15:29 | UC ---
Abdominal Pain Male HPI - HPI Summary HPI Summary: 21 yo male with a 2 day hx of 04/06 suprapubic abd pain and lower back pain dysuria anorexia no n/v/d no increased pain with movement - History of Current Complaint Chief Complaint: UCAbdominalPain Stated Complaint: STOMACH PAIN Time Seen by Provider: 08/27/17 15:14 Hx Obtained From: Patient Onset/Duration: Gradual Onset, Lasting Days Timing: Constant Severity Initially: Moderate Severity Currently: Moderate Pain Intensity: 7 Pain Scale Used: 0-10 Numeric Location: Suprapubic Radiates: Yes Radiates to: Back Character: Unable to describe Aggravating Factor(s): Nothing Associated Signs And Symptoms: Positive: Back Pain, Urinary Symptoms - Allergies/Home Medications Allergies/Adverse Reactions: Allergies Allergy/AdvReac Type Severity Reaction Status Date / Time No Known Allergies Allergy Verified 08/27/17 14:18 PMH/Surg Hx/FS Hx/Imm Hx Previously Healthy: Yes - Surgical History Surgical History: Yes Surgery Procedure, Year, and Place: meniscus repair right knee 2013. ACL REPAIR RIGHT KNEE 2014 - Family History Known Family History: Positive: Cardiac Disease, Other - mom with kidney stones - Social History Alcohol Use: Occasionally Alcohol Amount: 2 drinks last night Substance Use Type: None Substance Use Comment - Amount & Last Used: 11/13/16 last cocaine and marijuana- denies current use Smoking Status (MU): Former Smoker Have You Smoked in the Last Year: No - Immunization History Most Recent Influenza Vaccination: Not UTD Vaccination Up to Date: No Review of Systems Constitutional: Negative Skin: Negative Eyes: Negative ENT: Negative Respiratory: Negative Cardiovascular: Negative Gastrointestinal: Abdominal Pain Genitourinary: Dysuria, Urgency Motor: Negative Neurovascular: Negative Musculoskeletal: Negative Neurological: Negative Psychological: Negative Is Patient Immunocompromised?: No All Other Systems Reviewed And Are Negative: Yes Physical Exam Triage Information Reviewed: Yes Appearance: Well-Appearing, No Pain Distress, Well-Nourished Vital Signs: Initial Vital Signs Temp 98.9 F 08/27/17 14:14 Pulse 87 08/27/17 14:14 Resp 16 08/27/17 14:14 BP 127/72 08/27/17 14:14 Pulse Ox 97 08/27/17 14:14 Vital Signs Reviewed: Yes Eyes: Positive: Conjunctiva Clear ENT: Positive: Hearing grossly normal, Pharyngeal erythema, Uvula midline. Negative: Nasal congestion, Nasal drainage, Tonsillar swelling, Tonsillar exudate, Trismus, Muffled voice, Hoarse voice Dental Exam: Normal Neck: Positive: Supple, Nontender, No Lymphadenopathy Respiratory: Positive: Lungs clear, Normal breath sounds, No respiratory distress, No accessory muscle use Cardiovascular: Positive: RRR, No Murmur Abdomen Description: Negative: Nontender - tender suprapubically/unable to palpate bladder Musculoskeletal: Positive: ROM Intact, No Edema Neurological: Positive: Alert Psychological Exam: Normal Skin Exam: Normal Diagnostics - Radiology No standard instances Xray Interpretation: No Acute Changes - No evidence of obstructive uropathy is noted. No other masses or fluid collections are identified. Radiology Interpretation Completed By: Radiologist Re-Evaluation - Re-Evaluation First Eval Re-Evaluation Time: 16:47 Change: Improved Abd Pain Male Course/Dx - Course Course Of Treatment: I SUGGESTED AN UROLOGICAL REFERRAL - Differential Dx/Clinical Impression Provider Diagnoses: SUPRAPUBIC ABDOMINAL PAIN AND LOW BACK PAIN OF UNCERTAIN CAUSE. MICROSCOPIC HEMATURIA Discharge - Discharge Plan Condition: Stable Disposition: HOME Prescriptions: DOXYcycline CAP(*) [DOXYcycline 100MG CAP(*)] 100 mg PO BID #14 cap Patient Education Materials: Hematuria (ED), Acute Abdominal Pain (ED) Referrals: Lee Steel MD [Primary Care Provider] - As Soon As Possible Humza Whitman MD [Medical Doctor] - As Soon As Possible Additional Instructions: TESTS ARE PENDING YOUR CT WAS NORMAL NO CAUSE FOR YOUR MICROSCOPIC HEMATURIA WAS FOUND I SUGGEST YOU SEE A UROLOGIST TO ER FOR FEVER/VOMITING OR WORSENING PAIN TYLENOL FOR PAIN
--- NOTE | 2017-08-27 15:49 | RAD ---
Indication: Suprapubic pain. Hematuria. CT of the abdomen and pelvis was performed without oral or IV contrast demonstration. Lung bases demonstrate no pleural fluid, nodules or masses. Heart is of normal size without evidence of pericardial effusion. Liver is normal in size. No focal lesions or intrahepatic duct dilatation is noted. The gallbladder demonstrates no calcified gallstones. No pericholecystic fluid or wall thickening is identified. The pancreas demonstrates no mass or pancreatic duct dilatation. The spleen is normal in size. No adrenal masses are noted. The kidneys demonstrate no hydronephrosis. No retroperitoneal lymphadenopathy is noted. No pelvic adenopathy is identified. No dilated loops of bowel are noted. The colon is filled with stool. Normal appendix is noted. The prostate and urinary bladder are unremarkable. No free fluid is identified. IMPRESSION: No evidence of obstructive uropathy is noted. No other masses or fluid collections are identified.
== END 2017-08-27 16:49 | disposition home or self-care (01) ==
LOC: UCEAST 14:10
DX: R10.9 Unspecified abdominal pain (principal); M54.5 Low back pain; R31.29 Other microscopic hematuria; Z72.89 Other problems related to lifestyle; Z87.891 Personal history of nicotine dependence
CPT/HCPCS: 74176; 81003; 87086; 87491; 87591; 96372; 99212; G0463; J1885

== ENCOUNTER 2017-08-30 06:26 | Emergency (ER) | payer OTHER ==
[2017-08-30] MEDS ORDERED: Ondansetron INJ* 2 MG/ML VIAL IV ONE (07:26)
[2017-08-30] MEDS ORDERED: Ketorolac INJ* 30 MG/ML 1 ML VIAL IV ONE (07:26)
[2017-08-30] MEDS ORDERED: Ondansetron INJ* 2 MG/ML VIAL ONE (07:29)
[2017-08-30] MEDS ORDERED: Ketorolac INJ* 30 MG/ML 1 ML VIAL ONE (07:30)
[2017-08-30] MEDS: NS 0.9% 1000 ML* 2,000 ML IV ONE (07:40)
[2017-08-30 08:04] LABS: Hematocrit 41 % (42-52); Hemoglobin 14.5 g/dl (14.0-18.0); Mean Corpuscular HGB Conc 35 g/dl (31-36); Mean Corpuscular Hemoglobin 31 pg (27-31); Mean Corpuscular Volume 88 fL (80-94); Mean Platelet Volume 7 um3 (7.4-10.4); Red Blood Count 4.66 10^6/ul (4.0-5.4); Red Cell Distribution Width 13 % (10.5-15); White Blood Count 8.3 10^3/ul (3.5-10.8)
[2017-08-30 08:13] LABS: Urine Bacteria 1+ (Absent); Urine Bilirubin Negative (Negative); Urine Glucose Negative (Negative); Urine Nitrite Negative (Negative)
[2017-08-30 08:15] LABS: Albumin 4.1 g/dL (3.2-5.2); BUN/Creatinine Ratio 16.9 (8-20); C Reactive Protein 3.21 mg/L (< 5.00); Calcium 9.3 mg/dL (8.6-10.3); EGFR African American 63.4 (>60); EGFR Non-African American 49.3 (>60); Globulin 2.3 g/dL (2-4); Potassium 3.9 mmol/L (3.5-5.0); Total Bilirubin 0.5 mg/dL (0.2-1.0); Total Protein 6.4 g/dL (6.4-8.9)
--- NOTE | 2017-08-30 08:46 | RAD ---
INDICATION: Abdominal pain and hematuria COMPARISON: CT abdomen pelvis dated August 27, 2017 that did not show any acute abnormalities. TECHNIQUE: Supine and upright views of the abdomen were obtained. FINDINGS: There is stool seen throughout the length of the colon as far as the rectum. The small bowel and colon appear nondistended. No free intraperitoneal air is seen. No grossly abnormal or pathologic appearing calcifications are noted. Visualized bones are within normal limits for the patient's age. IMPRESSION: Moderate amount of stool is seen throughout the colon without pathologic dilatation. Please correlate to history of or symptoms of constipation.
[2017-08-30] MEDS ORDERED: Morphine INJ* 4 MG/ML 1 ML CARPUJECT IV ONE (09:43)
--- NOTE | 2017-08-30 09:46 | RAD ---
INDICATION: Right flank pain COMPARISON: CT of the abdomen and pelvis August 27, 2017 TECHNIQUE: Real-time ultrasound examination of the right kidney and urinary bladder including grayscale and Doppler color flow analysis. FINDINGS: The right kidney measures 11.6 x 6.5 x 6.3 cm. There is prominence of the renal pyramids. There is not increased echogenicity surrounding the renal pyramids associated with the appearance of medullary nephrocalcinosis. The warner of the urinary bladder are smooth. The pre and post urinary bladder volumes are , respectively. Normal ureteral jets are identified bilaterally. IMPRESSION: There is prominence of the right renal pyramids without peripheral echogenicity. 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 Normal ureteral jets are recorded.
[2017-08-30 11:53] LABS: EGFR African American 69.7 (>60); EGFR Non-African American 54.2 (>60)
[2017-08-30 11:57] LABS: Renal Sodium Excretion 1.79 %
--- NOTE | 2017-08-30 12:52 | CONS ---
NEPHROLOGY CONSULTATION: DATE OF CONSULT: 08/30/17 - EMERGENCY DEPT HISTORY OF PRESENT ILLNESS: Mr. Chandra is a 21-year-old gentleman who began to have bilateral flank pain a few days ago. The pain eventually radiated around to the right side and down into the suprapubic area. He presented to the [facility] and underwent a CT scan, which revealed no significant abnormalities. It was told he had some blood in the urine and he was started on doxycycline. He received some pain medication in the form of Toradol, which was temporarily effective before the pain only recurred. He again had severe pain today and presented to the emergency room where he was responsive to Toradol. He had some hydration here and when his laboratory values came back, his serum creatinine had gone up from 0.94 on 07/01/17 to 1.77. PAST MEDICAL HISTORY: Significant for panic disorder with agoraphobia. MEDICATIONS: His outpatient medications have included: 1. Alprazolam. 2. Sertraline. ALLERGIES: There are no medical allergies. He has no significant dietary peculiarities. He has not been using any dietary supplements. FAMILY HISTORY: Family history is significant in that his mother had hematuria and was told that she had probable kidney stones in the past, although she never remembers passing a stone. Apparently, a stone has been seen on imaging, however. SOCIAL HISTORY: He is not employed. 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 He does not use tobacco or alcohol. No recreational drugs. REVIEW OF SYSTEMS: No visual disturbances or swallowing difficulties. No heat or cold intolerance. No chest pain or shortness of breath. No nausea, vomiting. No change in his bowel habits. No arthropathy. He has had a skin rash, which he has been told that it is tinea versicolor. PHYSICAL EXAMINATION: He is a well-developed, well-nourished white gentleman who appears quite comfortable at the present time. His blood pressure is 137/ 73 with a pulse of 74, respirations are 16. He is afebrile. HEENT: He is normo-cephalic. His mucous membranes are moist. He is anicteric. There is no jugular venous distention. No nodes in the neck. Chest is clear. The heart revealed a regular rhythm without murmurs. The abdomen is soft and nontender but there is a right greater than the left CVA tenderness. Bowel sounds are positive. Bones, joints, and extremities revealed no cyanosis, clubbing, or edema. There is some evidence of Ivan's nails suggesting that there was some medical issue probably this summer. LABORATORY DATA: Review of his laboratory studies reveals a white count of 8.3 , hemoglobin 14.5, platelet count of 181,000. His electrolytes are within normal limits. BUN of 30, creatinine 1.77. Calcium 9.3. His urinalysis reveals specific gravity of 1.005, 1+ blood. IMPRESSION: Acute renal insufficiency, the etiology of which is undetermined at the present time. He actually looks well hydrated to me, although we do not have a fractional excretion of sodium yet back. There is the possibility that this could be related to the Toradol he received the other day in the [facility]. While certainly nephrocalcinosis can produce flank pain , ordinarily in the absence of a stone it does not radiate around anteriorly and usually does not produce renal insufficiency except when associated with obstruction or hypercalcemia. Ordinarily, the acute glomerulopathies would most likely be associated with urinary protein as well as blood, although solitary hematuria would be possible, for example, an early IgA nephropathy or focal segmental glomerulosclerosis, but this is an awfully rapid change for either of those diseases. There is a possibility acute interstitial nephritis from the Toradol. We should see a urine for eosinophils and fractional excretion of sodium. He probably should be treated with one of the opiates for his pain control and allowed to go home and I can follow him up in the office tomorrow. If this looks to be one of the rapidly progressive diseases, I probably want to include one of the tertiary medical centers in his care. [id number]/CPS #: [id number]
[2017-08-30] MEDS ORDERED: HYDROcodone/ACETAMIN 5-325 MG* 1 TAB PO ONE (13:19)
[2017-08-30] MEDS ORDERED: HYDROcodone/ACETAMIN 5-325 MG* 1 TAB ONE (13:23)
[2017-08-30 13:48] VITALS: BP 119/61
--- NOTE | 2017-09-01 07:47 | ED ---
Wiliam Frias Gabriel, scribed for Jono Chairez MD on 08/30/17 at 0718 . Abdominal Pain/Male - HPI Summary HPI Summary: This patient is a 21 year old M presenting to [facility] accompanied by father with a chief complaint of ABD since 3 days ago. The patient rates the pain 9/10 in severity, located under his navel, and radiating into her back. Patient reports hematuria. Patient was recently seen at where they did a CT, did not find any kidney stones, and told him to come to the ER if the pain got worse, which he says it has. He reports having more than one sexual partner and not using protection. - History of Current Complaint Chief Complaint: EDFlankPain Stated Complaint: ABD PAIN Time Seen by Provider: 08/30/17 07:09 Hx Obtained From: Patient Onset/Duration: Lasting Days - 3, Still Present Timing: Constant Pain Intensity: 9 Pain Scale Used: 0-10 Numeric Radiates: Yes Radiates to: Back - Allergies/Home Medications Allergies/Adverse Reactions: Allergies Allergy/AdvReac Type Severity Reaction Status Date / Time No Known Allergies Allergy Verified 08/27/17 14:18 PMH/Surg Hx/FS Hx/Imm Hx Previously Healthy: No Endocrine/Hematology History: Denies: Hx Diabetes, Hx Thyroid Disease Cardiovascular History: Denies: Hx Hypercholesterolemia, Hx Hypertension, Hx Pacemaker/ICD, Hx Peripheral Vascular Disease Respiratory History: Denies: Hx Asthma, Hx Chronic Obstructive Pulmonary Disease (COPD) GI History: Denies: Hx Ulcer History: Denies: Hx Renal Disease Musculoskeletal History: Denies: Hx Arthritis, Hx Rheumatoid Arthritis, Hx Osteoporosis, Hx Scoliosis Sensory History: Denies: Hx Cataracts, Hx Contacts or Glasses, Hx Glaucoma, Hx Hearing Aid Opthamlomology History: Denies: Hx Cataracts, Hx Contacts or Glasses, Hx Glaucoma Neurological History: Reports: Hx Headaches - 2 years ago, 1 week to recover Denies: Other Neuro Impairments/Disorders Psychiatric History: Reports: Hx Anxiety Denies: Hx Depression, Hx Panic Disorder - Surgical History Surgery Procedure, Year, and Place: meniscus repair right knee 2013. ACL REPAIR RIGHT KNEE 2014 Infectious Disease History: No Infectious Disease History: Denies: Hx Clostridium Difficile, Hx Hepatitis, Hx Human Immunodeficiency Virus (HIV), Hx of Known/Suspected MRSA, Hx Shingles, Hx Tuberculosis, Hx Known/ Suspected VRE, Hx Known/Suspected VRSA, History Other Infectious Disease, Traveled Outside the [place] in Last 30 Days - Family History Known Family History: Positive: Cardiac Disease, Other - mom with kidney stones - Social History Alcohol Use: Occasionally Alcohol Amount: 2 drinks last night Hx Substance Use: No Substance Use Type: Reports: None Substance Use Comment - Amount & Last Used: 11/13/16 last cocaine and marijuana- denies current use Hx Tobacco Use: No Smoking Status (MU): Former Smoker Have You Smoked in the Last Year: No Review of Systems Positive: Abdominal Pain Positive: other - blood in urine Positive: Other - back pain All Other Systems Reviewed And Are Negative: Yes Physical Exam - Summary Physical Exam Summary: VITAL SIGNS: Reviewed. GENERAL: Patient is a well-developed and nourished male who is lying comfortable in the stretcher. ~Patient is not in any acute respiratory distress. HEAD AND FACE: Normocephalic and atraumatic. EYES: PERRLA, EOMI x 2, No injected conjunctiva. EARS: Hearing grossly intact. Ear canals and tympanic membranes are WNL. MOUTH: Oropharynx within normal limits. NECK: Supple, trachea is midline, no adenopathy, no JVD. CHEST: Symmetric, no tenderness at palpation LUNGS: Clear to auscultation bilaterally. No wheezing or crackles. CVS: RRR, S1 and S2 present, no murmurs or gallops appreciated. ABDOMEN: Soft, non-tender. No signs of distention. Positive bowel sounds. No rebound no guarding, and no masses palpated. No abdominal bruit or pulsations. Positive CVA tenderness EXTREMITIES: FROM in all major joints, no edema, no cyanosis or clubbing. NEURO: Alert and oriented x 3. No acute neurological deficits. Speech is normal. SKIN: Dry and warm Triage Information Reviewed: Yes Vital Signs On Initial Exam: Initial Vitals Temp Pulse Resp BP Pulse Ox 98.1 F 89 16 143/84 97 08/30/17 06:29 08/30/17 06:29 08/30/17 06:29 08/30/17 06:29 08/30/17 06:29 Vital Signs Reviewed: Yes - [place] Coma Scale Coma Scale Total: 15 Diagnostics - Vital Signs Vital Signs Temp Pulse Resp BP Pulse Ox 08/30/17 06:29 98.1 F 89 16 143/84 97 - Laboratory Lab Results: Lab Results 08/30/17 08/30/17 08/30/17 Range/Units 07:45 07:45 07:45 WBC 8.3 (3.5-10.8) 10^3/ul RBC 4.66 (4.0-5.4) 10^6/ul Hgb 14.5 (14.0-18.0) g/dl Hct 41 L (42-52) % MCV 88 (80-94) fL MCH 31 (27-31) pg MCHC 35 (31-36) g/dl RDW 13 (10.5-15) % Plt Count 191 (150-450) 10^3/ul MPV 7 L (7.4-10.4) um3 Neut % (Auto) 55.9 (38-83) % Lymph % (Auto) 26.2 (25-47) % [place] % (Auto) 14.5 H (1-9) % Eos % (Auto) 2.6 (0-6) % Baso % (Auto) 0.8 (0-2) % Absolute Neuts (auto) 4.6 (1.5-7.7) 10^3/ul Absolute Lymphs (auto) 2.2 (1.0-4.8) 10^3/ul Absolute Monos (auto) 1.2 H (0-0.8) 10^3/ul Absolute Eos (auto) 0.2 (0-0.6) 10^3/ul Absolute Basos (auto) 0.1 (0-0.2) 10^3/ul Absolute Nucleated RBC 0 10^3/ul Nucleated RBC % 0 Sodium 141 (133-145) mmol/L Potassium 3.9 (3.5-5.0) mmol/L Chloride 107 (101-111) mmol/L Carbon Dioxide 26 (22-32) mmol/L Anion Gap 8 (2-11) mmol/L BUN 30 H (6-24) mg/dL Creatinine 1.77 H (0.67-1.17) mg/dL Est GFR ( Amer) 63.4 (>60) Est GFR (Non-Af Amer) 49.3 (>60) BUN/Creatinine Ratio 16.9 (8-20) Glucose 95 (70-100) mg/dL Calcium 9.3 (8.6-10.3) mg/dL Total Bilirubin 0.50 (0.2-1.0) mg/dL AST 19 (13-39) U/L ALT 15 (7-52) U/L Alkaline Phosphatase 39 (34-104) U/L C-Reactive Protein 3.21 (< 5.00) mg/L Total Protein 6.4 (6.4-8.9) g/dL Albumin 4.1 (3.2-5.2) g/dL Globulin 2.3 (2-4) g/dL Albumin/Globulin Ratio 1.8 (1-3) Amylase 30 (29-103) U/L Lipase 14 (11.0-82.0) U/L Urine Color Straw Urine Appearance Clear Urine pH 5.0 (5-9) Ur Specific [place] 1.005 L (1.010-1.030) Urine Protein Negative (Negative) Urine Ketones Negative (Negative) Urine Blood 1+ H (Negative) Urine Nitrate Negative (Negative) Urine Bilirubin Negative (Negative) Urine Urobilinogen Negative (Negative) Ur Leukocyte Esterase Negative (Negative) Urine WBC (Auto) Absent (Absent) Urine RBC (Auto) Trace(0-2/hpf) (Absent) Urine Bacteria 1+ H (Absent) Urine Glucose Negative (Negative) Result Diagrams: 08/30/17 07:45 08/30/17 11:26 Lab Statement: Any lab studies that have been ordered have been reviewed, and results considered in the medical decision making process. - Radiology ABD XRAY Radiology Interpretation Completed By: Radiologist - Moderate amount of stool is seen throughout the colon without pathologic dilatation. Please correlate to history of or symptoms of constipation. ED physician has reviewed this radiology report and agrees. - Additional Comments Diagnostic Additional Comments: Renal US reveals, per radiologist, There is prominence of the right renal pyramids without peripheral echogenicity. 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 Normal ureteral jets are recorded. ED physician has reviewed this radiology report and agrees Re-Evaluation - Re-Evaluation First Eval Re-Evaluation Time: 10:05 Change: Improved Comment: Patient is feeling better after medication. Abdominal Pain Fem Course/Dx - Course Assessment/Plan: This patient is a 21 year old M presenting to [facility] accompanied by father with a chief complaint of ABD since 3 days ago. The patient rates the pain 9/10 in severity, located under his navel, and radiating into her back. Patient reports hematuria. Patient was recently seen at where they did a CT, did not find any kidney stones, and told him to come to the ER if the pain got worse, which he says it has. He reports having more than one sexual partner and not using protection. Labs without any significant abnormalities except for increased BUN and creatinine. UA was negative for UTI but positive for blood. ABD X-ray reveals, per radiologist, Moderate amount of stool is seen throughout the colon without pathologic dilatation. Please correlate to history of or symptoms of constipation. I discussed patient care with Dr. Whitman and they recommended performing a renal US. Renal US reveals, per radiologist, There is prominence of the right renal pyramids without peripheral echogenicity. 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 Normal ureteral jets are recorded. Discussed results with Dr. Whitman who recommends consulting a urologist. Dr. Farris agreed to come see the patient. Dr. Farris ordered more labs, the results will be followed up at his office he recommended discharge with pain medication. Patient given narco and discharged home with his father he will follow up with Dr. Chung. In the ED course an IV access was obtained. Pt was placed in a youth nutritional monitor. Pt was started with IV fluids. In the ED course, pt has been improving and is stable. Pt is hemodynamically stable, alert and oriented x3. - Diagnoses Differential Diagnosis/HQI/PQRI: Constipation, Renal Colic, Ureteral Stone, Urinary Tract Infection Provider Diagnoses: Acute renal insufficiency - Provider Notifications Discussed Care Of Patient With: Humza Whitman Time Discussed With Above Provider: 08:45 Instructed by Provider To: Other - We discussed patient care with Dr. Whitman and they recommended to perform a renal US. Discharge - Discharge Plan Condition: Stable Disposition: HOME Prescriptions: HYDROcodone/ACETAMIN 5-325 MG* [[place] 5-325 TAB*] 1 tab PO Q6H PRN #6 tab MDD 4 PRN Reason: Pain Patient Education Materials: Hydrocodone/Acetaminophen (By mouth) Referrals: Lee Steel MD [Primary Care Provider] - 3 Days Additional Instructions: RETURN TO THE EMERGENCY DEPARTMENT FOR CHANGING OR WORSENING SYMPTOMS. Consult Consult: 10:12 Discussed patient care with Dr. Whitman he recommended that Dr. Farris be consulted. 10:18 Discussed patient care with Dr. Farris, he agreed to come see the patient. 12:53 Discussed patient care with Dr. Farris, he recommend discharging the patient with something to alleviate pain. The documentation as recorded by the Wiliam fish Gabriel accurately reflects the service I personally performed and the decisions made by me, Jono Chairez MD.
== END 2017-08-30 13:25 | disposition home or self-care (01) ==
LOC: ED 06:26
DX: N28.9 Disorder of kidney and ureter, unspecified (principal)
CPT/HCPCS: 36415; 74020; 76775; 80053; 80307; 80353; 81003; 81015; 82150; 82565; 82570; 83690; 84300; 84520; 85025; 86140; 87086; 89190; 99283; G0480; J1885; J2270; J2405

== ENCOUNTER 2018-02-09 19:09 | Emergency (ER) | payer OTHER ==
--- NOTE | 2018-02-09 19:50 | RAD ---
INDICATION: Right shoulder pain COMPARISON: None TECHNIQUE: AP, lateral, and oblique views were obtained. FINDINGS: The bony structures, joint spaces, and soft tissues are normal for age. IMPRESSION: NEGATIVE EXAMINATION.
--- NOTE | 2018-02-09 19:54 | RAD ---
INDICATION: Neck pain COMPARISON: Cervical spine June 09, 2011 TECHNIQUE: Routine five-view imaging was performed FINDINGS: Bones: There are no acute bony findings. There are no significant osteoarthritic findings. Craniocervical junction: The odontoid and atlantodental interval are normal. Alignment: Normal Disc spaces: The disc spaces are well-maintained Soft tissues: The prevertebral soft tissues are normal. IMPRESSION: NEGATIVE EXAMINATION.
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
[2018-02-09 20:14] VITALS: BP 115/83
== END 2018-02-09 20:17 | disposition home or self-care (01) ==
LOC: ED 19:09
DX: M25.511 Pain in right shoulder (principal); R20.2 Paresthesia of skin; Z87.891 Personal history of nicotine dependence
CPT/HCPCS: 72050; 99282

== ENCOUNTER 2019-07-17 20:08 | Emergency (ER) | payer OTHER ==
--- NOTE | 2019-07-17 20:12 | UC ---
Upper Extremity HPI - History of Current Complaint Stated Complaint: L ELBOW PAIN Time Seen by Provider: 07/17/19 20:11 - Allergies/Home Medications Allergies/Adverse Reactions: Allergies Allergy/AdvReac Type Severity Reaction Status Date / Time No Known Allergies Allergy Verified 08/27/17 14:18 PMH/Surg Hx/FS Hx/Imm Hx - Surgical History Surgical History: Yes Surgery Procedure, Year, and Place: meniscus repair right knee 2013. ACL REPAIR RIGHT KNEE 2014 - Family History Known Family History: Positive: Cardiac Disease, Other - mom with kidney stones - Social History Alcohol Use: Weekly Alcohol Amount: 2 drinks last night Substance Use Type: None Substance Use Comment - Amount & Last Used: 11/13/16 last cocaine and marijuana- denies current use Smoking Status (MU): Former Smoker Have You Smoked in the Last Year: No - Immunization History Most Recent Influenza Vaccination: Not UTD Vaccination Up to Date: No Discharge ED - Discharge Plan Referrals: Lee Steel MD [Primary Care Provider] -
[2019-07-17 20:23] VITALS: BP 137/75
--- NOTE | 2019-07-17 20:52 | ED ---
Upper Extremity Pain - HPI Summary HPI Summary: Patient is 23 year old male, who present today to the urgent care with left elbow pain for past 2 days. 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 Swelling started Thursday morning and began to get red and warm last night. it is worsening. No fevers yet He reports that he had full range of motion of the left elbow yesterday and it is feeling very limited right now. Redness is spreading both into the forearm and into the arm - History of Current Complaint Chief Complaint: [place] Stated Complaint: L ELBOW PAIN Time Seen by Provider: 07/17/19 20:11 Hx Obtained From: Patient - Allergies/Home Medications Allergies/Adverse Reactions: Allergies Allergy/AdvReac Type Severity Reaction Status Date / Time ibuprofen [From Advil] Allergy See Comment Verified 07/17/19 21:39 Home Medications: Home Medications Ibuprofen 400 mg PO 07/17/19 [History] PMH/Surg Hx/FS Hx/Imm Hx Previously Healthy: Yes - Past Medical History : None Endocrine/Hematology History: Denies: Hx Diabetes, Hx Thyroid Disease Cardiovascular History: Denies: Hx Hypercholesterolemia, Hx Hypertension, Hx Pacemaker/ICD, Hx Peripheral Vascular Disease Respiratory History: Denies: Hx Asthma, Hx Chronic Obstructive Pulmonary Disease (COPD) GI History: Denies: Hx Ulcer History: Denies: Hx Renal Disease Musculoskeletal History: Denies: Hx Arthritis, Hx Rheumatoid Arthritis, Hx Osteoporosis, Hx Scoliosis Sensory History: Denies: Hx Cataracts, Hx Contacts or Glasses, Hx Glaucoma, Hx Hearing Aid Opthamlomology History: Denies: Hx Cataracts, Hx Contacts or Glasses, Hx Glaucoma Neurological History: Reports: Hx Headaches - 2 years ago, 1 week to recover Denies: Other Neuro Impairments/Disorders Psychiatric History: Reports: Hx Anxiety Denies: Hx Depression, Hx Panic Disorder - Surgical History Surgery Procedure, Year, and Place: meniscus repair right knee 2013. ACL REPAIR RIGHT KNEE 2014 Infectious Disease History: No Infectious Disease History: Denies: Hx Clostridium Difficile, Hx Hepatitis, Hx Human Immunodeficiency Virus (HIV), Hx of Known/Suspected MRSA, Hx Shingles, Hx Tuberculosis, Hx Known/ Suspected VRE, Hx Known/Suspected VRSA, History Other Infectious Disease, Traveled Outside the [place] in Last 30 Days - Family History Known Family History: Positive: Cardiac Disease, Other - mom with kidney stones , Non-Contributory - Social History Alcohol Use: Weekly Alcohol Amount: 2 drinks last night Substance Use Type: Reports: None Substance Use Comment - Amount & Last Used: 11/13/16 last cocaine and marijuana- denies current use Hx Tobacco Use: No Smoking Status (MU): Former Smoker Have You Smoked in the Last Year: No Review of Systems Constitutional: Negative Eyes: Negative ENT: Negative Cardiovascular: Negative Respiratory: Negative Gastrointestinal: Negative Genitourinary: Negative Positive: Arthralgia - left elbow, Decreased ROM - left elbow Positive: Other - redness of the left elbow Neurological: Negative Psychological: Normal All Other Systems Reviewed And Are Negative: Yes Physical Exam - Summary Physical Exam Summary: Vital Signs Reviewed: Yes A+Ox3, no distress Eyes: Conjunctiva Clear ENT: Hearing grossly normal neck: supple Respiratory: Positive: No respiratory distress, No accessory muscle use Cardiovascular: skin color reflect adequate perfusion Musculoskeletal Exam: COBB x 4 without difficulty Neurological: Positive: Alert, ambulatory without difficulty Psychological: Positive: Normal Response To Family Skin: Positive: no rash, no ecchymosis Left Elbow: Inspection /Palpation: Erythema and swelling noted around the olecranon process -there is a scab wound at the olecranon bursal area. Erythema is spreading into the area of 25 cm x 22 cm across forearm to his arm involving the posterior elbow . There is tenderness to palpation fluctuance swelling of the olecranon bursa. Stability: No instability bilaterally. Strength:5/5 on the right. ROM: Right elbow: Limited and painful range of motion . Reflexes: DTR's are 2+ bilaterally. Coordination normal Triage Information Reviewed: Yes Vital Signs On Initial Exam: Initial Vitals Temp Pulse Resp BP Pulse Ox 99.4 F 94 16 137/75 98 07/17/19 20:17 07/17/19 20:17 07/17/19 20:17 07/17/19 20:17 07/17/19 20:17 Vital Signs Reviewed: Yes Diagnostics - Vital Signs Vital Signs Temp Pulse Resp BP Pulse Ox 07/17/19 20:17 99.4 F 94 16 137/75 98 - Laboratory Lab Statement: Any lab studies that have been ordered have been reviewed, and results considered in the medical decision making process. Course/Dx - Course Course Of Treatment: During the visit today, we discussed the findings- he has cellulitis and septic bursitis but possibility of septic arthritis of elbow joint cannot be completely ruled out. Patient needs additional testing, thus ER transfer advised and patient agrees. Report called to the ER provider, at [facility], advised provider of the history, physical examination, and duration of illness so far and the need for definitive management. Patient expressed understanding . - Diagnoses Provider Diagnoses: Cellulitis of left elbow, Olecranon bursitis, Septic joint of left elbow Discharge ED - Sign-Out/Discharge Documenting (check all that apply): Patient Departure All imaging exams completed and their final reports reviewed: No Studies - Discharge Plan Condition: Stable Disposition: HOME-RECOMMEND TO ED Patient Education Materials: Cellulitis (ED), Elbow Bursitis (ED) Referrals: Lee Steel MD [Primary Care Provider] - Additional Instructions: Please go to the ER immediately for further evaluation and testing. - Billing Disposition and Condition Condition: STABLE Disposition: Home-Recommend to ED
== END 2019-07-17 21:14 | disposition home health service (06) ==
LOC: UCEAST 20:08
DX: L03.114 Cellulitis of left upper limb (principal); M70.22 Olecranon bursitis, left elbow; M00.822 Arthritis due to other bacteria, left elbow; Z87.891 Personal history of nicotine dependence; Z88.8 Allergy status to other drugs, medicaments and biological substances
CPT/HCPCS: 99212; G0463

== ENCOUNTER 2019-07-17 21:31 | Inpatient (IN) | payer OTHER ==
[2019-07-17] MEDS ORDERED: NS 0.9% 1000 ML** 1,000 ML IV ONE (22:14)
[2019-07-17] MEDS ORDERED: Acetaminophen TAB* 325 MG PO ONE (22:20)
[2019-07-17] MEDS ORDERED: ED ceFAZolin 1 GM/50 ML 1 GM/50 ML PREMIX.SET IVPB ONE (22:20)
--- NOTE | 2019-07-17 22:23 | ED ---
Upper Extremity Pain - HPI Summary HPI Summary: This patient is a 23 year old M sent to ED from with a chief complaint of left elbow pain since 07/15/19. Patient injured his left elbow playing football on 07/15/19 by smashing his elbow into someone elses helmet. Patient had an open wound .Yesterday, patient noted that there was swelling of the left elbow. Today, after waking up, patient noted that the elbow felt hot to the touch and more painful. Patient reports subjective fever. The patient rates the pain 10/ 10 in severity. Symptoms aggravated by nothing. Symptoms alleviated by nothing. - History of Current Complaint Chief Complaint: EDExtremityUpper Stated Complaint: L ELBOW PAIN SENT FROM PER PT Time Seen by Provider: 07/17/19 22:06 Hx Obtained From: Patient Mechanism Of Injury: Blunt Trauma - Football injury Onset/Duration: Started Days Ago - 07/15/19, Traumatic, Still Present, Worse Since Timing: Constant, Lasting Days - Since 07/15/19 Severity Initially: Moderate Severity Currently: Severe Pain Location: Elbow - Left Aggravating Factor(s): Nothing Alleviating Factor(s): Nothing Associated Signs & Symptoms: Positive: Swelling, Redness, Fever - Allergies/Home Medications Allergies/Adverse Reactions: Allergies Allergy/AdvReac Type Severity Reaction Status Date / Time ibuprofen [From Advil] Allergy See Comment Verified 07/17/19 21:39 PMH/Surg Hx/FS Hx/Imm Hx Endocrine/Hematology History: Denies: Hx Diabetes, Hx Thyroid Disease Cardiovascular History: Denies: Hx Hypercholesterolemia, Hx Hypertension, Hx Pacemaker/ICD, Hx Peripheral Vascular Disease Respiratory History: Denies: Hx Asthma, Hx Chronic Obstructive Pulmonary Disease (COPD) GI History: Denies: Hx Ulcer History: Denies: Hx Renal Disease Musculoskeletal History: Denies: Hx Arthritis, Hx Rheumatoid Arthritis, Hx Osteoporosis, Hx Scoliosis Sensory History: Denies: Hx Cataracts, Hx Contacts or Glasses, Hx Glaucoma, Hx Hearing Aid Opthamlomology History: Denies: Hx Cataracts, Hx Contacts or Glasses, Hx Glaucoma Neurological History: Reports: Hx Headaches - 2 years ago, 1 week to recover Denies: Other Neuro Impairments/Disorders Psychiatric History: Reports: Hx Anxiety Denies: Hx Depression, Hx Panic Disorder - Surgical History Surgery Procedure, Year, and Place: meniscus repair right knee 2013. ACL REPAIR RIGHT KNEE 2015 Infectious Disease History: No Infectious Disease History: Denies: Hx Clostridium Difficile, Hx Hepatitis, Hx Human Immunodeficiency Virus (HIV), Hx of Known/Suspected MRSA, Hx Shingles, Hx Tuberculosis, Hx Known/ Suspected VRE, Hx Known/Suspected VRSA, History Other Infectious Disease, Traveled Outside the [place] in Last 30 Days - Family History Known Family History: Positive: Cardiac Disease, Other - mom with kidney stones - Social History Alcohol Use: Weekly Alcohol Amount: 2 drinks last night Hx Substance Use: No Substance Use Type: Reports: None Substance Use Comment - Amount & Last Used: 11/13/16 last cocaine and marijuana- denies current use Hx Tobacco Use: Yes Smoking Status (MU): Former Smoker Have You Smoked in the Last Year: No Review of Systems Positive: Fever - Subjective Musculoskeletal: Other - Left elbow pain, swelling, and hot to touch All Other Systems Reviewed And Are Negative: Yes Physical Exam - Summary Physical Exam Summary: Appearance: Well-appearing, Well-nourished, lying in bed comfortable Skin: Warm, dry, no obvious rash Eyes: sclera anicteric, no conjunctival pallor ENT: mucous membranes moist Neck: deferred Respiratory: No signs of respiratory distress Cardiovascular: Appears well perfused, pulses are nml Abdomen: deferred Musculoskeletal: Left elbow has a small closed wound over the olecranon. There is extensive cellulitis extending distally and proximally from there about a third of the way down the forearm and a third of the way up the arm. It extends circumferentially about 50% of the circumference of the elbow. There is no definite fluctuance although the olecranon bursa does feel boggy and the area is diffusely warm. The patient is able to flex the elbow but he is not able to fully extend it due to pain. Neurological: Awake and alert, mentation is normal, speech is fluent and appropriate Psychiatric: affect is normal, does not appear anxious or depressed Triage Information Reviewed: Yes Vital Signs On Initial Exam: Initial Vitals Temp Pulse Resp BP Pulse Ox 99.0 F 96 15 139/97 96 07/17/19 21:35 07/17/19 21:35 07/17/19 21:35 07/17/19 21:35 07/17/19 21:35 Vital Signs Reviewed: Yes Procedures - Sedation Patient Received Moderate/Deep Sedation with Procedure: No Diagnostics - Vital Signs Vital Signs Temp Pulse Resp BP Pulse Ox 07/17/19 21:35 99.0 F 96 15 139/97 96 - Laboratory Result Diagrams: 07/17/19 22:25 07/17/19 22:25 Lab Statement: Any lab studies that have been ordered have been reviewed, and results considered in the medical decision making process. - Radiology L elbow XR Radiology Interpretation Completed By: ED Physician Summary of Radiographic Findings: Negative for fracture or joint effusion, pending official radiology report. - Ultrasound Soft tissue Ultrasound Interpretation Completed By: Radiologist Summary of Ultrasound Findings: Posterior left elbow bursitis versus evolving hematoma. Dr. Santos has reviewed this radiology report. Re-Evaluation - Re-Evaluation First Eval Re-Evaluation Time: 23:31 Comment: Discussed results with patient. Patient agrees to be admitted [place] [facility] [place]. Course/Dx - Course Course Of Treatment: This patient is a 23 year old M sent to ED from with a chief complaint of left elbow pain since 07/15/19. In the ED course, patient received fluids, Tylenol, and Kefzol. Blood work revealed BUN/creatinine ratio 20.9, CRP 53.65, MPV 6.6, monocytes 1.2. L elbow XR revealed: Negative for fracture or joint effusion, pending official radiology report. Soft tissue US revealed: Posterior left elbow bursitis versus evolving hematoma. Discussed patient case with britney Conley, who recommended the patient be admitted to [facility] for [place] abx. At 2343 discussed patient case with Dr. Espinal, who accepted the patient for admission to [facility]. Discussed results with patient. Patient will be admitted to [facility] with dx of septic bursitis. Patient understands and agrees with this plan. - Diagnoses Provider Diagnoses: Septic olecranon bursitis of left elbow - Physician Notifications Discussed Care of Patient With: Nathen Wolf Time Discussed With Above Provider: 23:27 Instructed by Provider To: Other - Discussed patient case with britney Conley, who recommended the patient be admitted to [facility] [place] IV abx. At [address] discussed patient case with Dr[address] Espinal, who accepted the patient for admission to [facility]. Discharge ED - Sign-Out/Discharge Documenting (check all that apply): Patient Departure - Admit - Discharge Plan Condition: Fair Disposition: ADMITTED TO [facility] - Billing Disposition and Condition Condition: FAIR Disposition: Admitted to [facility] - Attestation Statements Document Initiated by Tripp: Yes Documenting Scribe: Keanu Jack Provider For Whom Tripp is Documenting (Include Credential): Max Santos MD Scribe Attestation: I, Keanu Jack, scribed for Max Santos MD on 07/18/19 at 0509. Scribe Documentation Reviewed: Yes Provider Attestation: The documentation as recorded by the Keanu fish accurately reflects the service I personally performed and the decisions made by me, Max Santos MD Status of Scribe Document: Viewed
[2019-07-17 22:40] LABS: ABS Basophils 0.1 10^3/ul (0-0.2); ABS Eosinophils 0.1 10^3/ul (0-0.6); ABS Lymphocytes 1.8 10^3/ul (1.0-4.8); ABS Monocytes 1.2 10^3/ul (0-0.8); ABS Neutrophils 6.8 10^3/ul (1.5-7.7); Eosinophil % 0.9 %; Hematocrit 45 % (42-52); Hemoglobin 15.5 g/dL (14.0-18.0); Lymphocyte % 17.8 %; Mean Corpuscular HGB Conc 35 g/dL (31-36); Mean Corpuscular Hemoglobin 30 pg (27-31); Mean Corpuscular Volume 88 fL (80-94); Mean Platelet Volume 6.6 fL (7.4-10.4); Nucleated Red Blood Cells % 0.1; Platelet Count 220 10^3/uL (150-450); Red Blood Count 5.09 10^6 /uL (4.18-5.48); Red Cell Distribution Width 13 % (10-15)
[2019-07-17 22:58] LABS: Albumin 4.2 g/dL (3.2-5.2); Albumin/Globulin Ratio 1.6 (1-3); BUN/Creatinine Ratio 20.9 (8-20); C Reactive Protein 53.65 mg/L (<8.01); Calcium 9.1 mg/dL (8.6-10.3); EGFR African American 134.6 (>60); EGFR Non-African American 111.2 (>60); Globulin 2.6 g/dL (2-4); Total Bilirubin 0.7 mg/dL (0.2-1.0); Total Protein 6.8 g/dL (6.4-8.9)
[2019-07-17] MEDS ORDERED: ceFAZolin 1 GM* X ONE DOSE (AddVan) IVPB ×2 (23:00)
[2019-07-18] MEDS ORDERED: oxyCODONE TAB* 5 MG TAB PO ONE (00:44)
[2019-07-18] MEDS ORDERED: Acetaminophen TAB* 325 MG PO PRN (01:18)
--- NOTE | 2019-07-18 03:05 | HP ---
CC: Dr. Steel * ADMISSION HISTORY AND PHYSICAL: DATE OF ADMISSION: 07/17/19 PRIMARY CARE PROVIDER: Dr. Lee Steel. HEALTHCARE PROXY: His mother and his father. CODE STATUS: Full. SOURCE OF INFORMATION: History obtained from interview with patient and his father. RELIABILITY: Good. CHIEF COMPLAINT: Left elbow swelling. HISTORY OF PRESENT ILLNESS: This is a 23-year-old man seen here at [facility], plays football for the team, the game Thursday night, during a play, his elbow smashed into another player's mask, caused a laceration, minimally painful at that time; however, the following day 1 day prior to presentation he had noticed increased swelling of his left elbow. By midday, day prior to presentation he had increased swelling. By day of presentation, his left elbow had become increasingly swollen, red, and very painful. Subjective fevers throughout the day, but no chills. No nausea, vomiting, or chest pain. No shortness of breath. Does note a chronic cough for 2 months. Because of the increasing pain and swelling he sought evaluation for further care. PAST MEDICAL HISTORY: 1. History of panic disorder. 2. History of right knee meniscus tear. 3. History of right ACL tear and repair. 4. Left shoulder torn labrum and repair. 5. Multiple dislocated fingers with repair. 6. History of acute interstitial nephritis in the setting of NSAID use, for which he has been advised to avoid in the future. MEDICATIONS: No medications. No over the counters. ALLERGIES: No known allergies. FAMILY HISTORY: CAD in his father's side. His grandfather has pancreatic cancer. SOCIAL HISTORY: Reports 1 to 2 alcoholic drinks in the weekend. No smoking or other illicits. He is a senior at [employer]. REVIEW OF SYSTEMS: As per HPI, otherwise all other systems negative. PHYSICAL EXAMINATION GENERAL: Sitting up in bed, interactive, pleasant, in no apparent distress. VITAL SIGNS: In the emergency room; 139/97, pulse rate is 96, respiratory rate is 15, T-max 99, O2 sat is 96% on room air. HEENT: Oropharynx is clear. Moist mucous membranes. NECK: He has non-elevated JVD. He has no cervical or supraclavicular lymphadenopathy. LUNGS: Clear. HEART: He is tachycardic. No murmurs, rubs, or gallops. ABDOMEN: Soft, nontender, and nondistended. EXTREMITIES: Warm and well perfused. Skin exam is notable for erythema surrounding his left elbow, extending upward approximately 8 inches and down 4 inches. The area demarcated. Area over the elbow is tender and fluctuant. There is a small laceration over his left elbow, now healed. He has difficulty with forward flexion, but he can with some pain. Distally, his fingers are warm. He has full sensation. Pulses are good, less than 2 second capillary refill. NEUROLOGIC: He is alert and oriented x3. He has no apparent anxiety, agitation , or depression. LABORATORY DATA: Reviewed; notable for white blood cell count of 10.0, BUN is 18, creatinine is 0.86, CRP is 53. DATA REVIEWED: Soft-tissue ultrasound of his left elbow; posterior left elbow bursitis versus evolving hematoma, loculated hypoechoic collection with internal septations overlying the elbow. No internal vascular flow and adjacent hyperemia measuring 6.5 x 1.8 x 4.2 cm. ASSESSMENT AND PLAN: This 23-year-old man with no significant past medical history pertaining to this admission; presenting with increasing erythema pain over his left elbow in the setting of laceration after playing football. Pain, swelling, and tenderness, soft tissue infection overlying. Suspected septic bursitis. Plan to cover for methicillin-susceptible Staphylococcus aureus and strep species with cephazolin 2 g every 8 hours. The patient will be swabbed for a Methicillin- resistant Staphylococcus aureus. If it is positive, we will expand to cover with vancomycin if he has colonized in his nares. Otherwise, no preceding risk factors or immunocompromise state suggest that we should cover for Methicillin-resistant Staphylococcus aureus. He is nontoxic and does not have a fever or leukocytosis. If he fails to improve, can also consider broadening coverage to Methicillin- resistant Staphylococcus aureus as well as covering polymicrobial species. The patient's elbow was covered with a shirt at this time with an injury. Unclear if playing football predisposed the polymicrobial infections with a laceration and soft tissue infection as well as septic bursitis. Total duration antibiotics planned for 10 days, to be extended longer if it fails to improve. Further ID consultation if needed or fails to improve. The emergency room discussed with Dr. Baker, who will see the patient. These patients do not typically need bursectomy for treatment. DVT prophylaxis, low risk. Ambulate ad alfredo. [id number]/[facility] #: [id number] [facility]PITAL[facility]
[2019-07-18] MEDS ORDERED: ceFAZolin VIAL(*) 2 GM in NS 0.9% 100 ML* 100 ML IVPB SCH (06:00)
[2019-07-18] MEDS: ceFAZolin* 2 GM* Q8H (Duplex) IVPB SCH ×3 (06:15→22:20)
[2019-07-18] MEDS: oxyCODONE TAB* 5 MG TAB PO PRN ×2 (10:21→20:17)
[2019-07-18 12:27] LABS: Body Fluid Source Synovial Fluid
[2019-07-18 14:01] LABS: Body Fluid Mono 1 %
--- NOTE | 2019-07-18 14:46 | CONS ---
CONSULTATION REPORT: DATE OF ADMISSION: 07/17/19 DATE OF CONSULT: 07/18/19 ATTENDING ORTHOPEDIC PROVIDER: Dr. Nader Mae. PRIMARY CARE PROVIDER: Dr. Lee Steel. CHIEF COMPLAINT: Left elbow septic olecranon bursitis. HISTORY OF PRESENT ILLNESS: The patient is a 23-year-old male who presented to [facility] on 07/17/19 with complaint of left elbow pain. Onset of pain was 07/15/19 during his football game, in which a laceration was sustained to his left elbow by a blow from another player's mask. At that time, it was minimally painful. The following day, the patient noticed significant swelling and redness of the left elbow and by midday had become quite painful. He had subjective fevers throughout Thursday and Thursday without chills. Today, pain is well controlled and described as aching in nature without radiation. He denies any fever, chills, nausea, vomiting, or worsening of the redness since starting antibiotics. He has been admitted to [facility] since late last night and has been on cefazolin. PAST MEDICAL HISTORY: Significant for panic disorder, right knee meniscal tear , right knee ACL tear, left shoulder labral tear, acute interstitial nephritis. PAST SURGICAL HISTORY: Right knee ACL repair, left shoulder labral repair. MEDICATIONS: No [id number] medications. ALLERGIES: No known drug allergies. FAMILY HISTORY: Coronary artery disease on the father's side. SOCIAL HISTORY: One to two alcoholic drinks on the weekend. No smoking. No illicit drugs. The patient is a senior at [employer]. REVIEW OF SYSTEMS: General: Negative for fever, chills HEENT: No head trauma associated with injury MSK: left elbow pain neuro: No numbness or tingling of LUE Skin: + laceration of left elbow PHYSICAL EXAM: General: Appears well, in no acute distress. Vital Signs: Temperature 98.2, pulse rate 87, respiratory rate 14, oxygen saturation 99% on room air, blood pressure 144/72. Respiratory: Normal rate and effort of breathing. Abdomen: Nondistended. Extremities: Left elbow, there is a 1 cm scabbed over laceration on the elbow without discharge. There is erythema extending to mid upper arm, down to mid forearm, and encompassing the elbow. There is warmth, swelling and fluctuance over the elbow. Passive range of motion at the elbow is not painful. All compartments of the forearm as well as upper arm are compressible. The patient is able to actively flex and extend at the shoulder, wrist, and digits without pain. Capillary refill is less than 2 seconds distally. Neuro: Sensation is intact to light touch distally. DIAGNOSTIC STUDIES/LAB DATA: Laboratory studies: White blood cell count 10.0. Sodium 135, potassium 4.0. CRP is 53.6. All these labs are from 07/17/19. New lab sets were ordered for 07/19/19. Left elbow x-ray: Prominent soft tissue swelling. Old ununited fracture of the medial epicondyle consistent with previous MCL injury. ASSESSMENT: Septic olecranon bursitis of the left elbow. PROCEDURE: Dr Mae performed aspiration of the left olecranon bursa after time-out and consent were completed. Roughly 15 cc of straw colored fluid was removed from the elbow. No june pus. Cultures were sent to the lab. This procedure was tolerated well by the patient. Gauze wrap and chalino wrap were applied. PLAN: The patient can be weightbearing as tolerated. He should continue IV abx per the medicine team. We will monitor tomorrow to see if the patient needs to be brought to OR for I and D versus if he is significantly better then he can continue with antibiotics without surgical intervention. CRP, BMP, and CBC ordered for tomorrow. NPO at midnight until ortho has assessed elbow in the morning. This patient was seen and examined with Dr. Mae, who agrees with this assessment and plan. KARINA SINGH [id number]/[facility] #: [id number] MTDMirna
--- NOTE | 2019-07-18 14:49 | PN ---
Subjective Date of Service: 07/18/19 Interval History: Patient complained of left elbow swelling not better, restricting his range of movement. Otherwise he was afebrile overnight, though he does feel chills. No discharge from the wound. Around 1pm, he complained of palpitation, found to have HR 120+. EKG STAT showed sinus tachycardia. BP 150+/60+, afebrile. No chest pain, no lightheadedness. He contributed to anxiety. Explained to him and put on telemetry for continuous monitoring. He understood and agreed with the plan. Objective Active Medications: Acetaminophen (Tylenol Tab*) 975 mg PO Q8H PRN PRN Reason: PAIN - MILD Cefazolin Sodium/Dextrose (Kefzol 2 Gm Premix In Ors(*)) 2 gm in 50 mls @ 100 mls/hr IVPB Q8H ARACELIS Last Admin: 07/18/19 14:35 Dose: 100 mls/hr Oxycodone HCl (Roxycodone Tab*) 5 mg PO Q4H PRN PRN Reason: Pain - Moderate to Severe Last Admin: 07/18/19 10:21 Dose: 5 mg Vital Signs - 8 hr 07/18/19 07/18/19 07/18/19 07:25 10:21 11:25 Temperature 98.2 F 98.8 F Pulse Rate 87 118 Respiratory 14 16 18 Rate Blood Pressure 144/72 156/66 (mmHg) O2 Sat by Pulse 99 96 Oximetry 07/18/19 14:35 Temperature Pulse Rate Respiratory 16 Rate Blood Pressure (mmHg) O2 Sat by Pulse Oximetry Oxygen Devices in Use Now: None Exam: Appearance: alert Respiratory: Clear to Auscultation Cardiovascular: NL Sounds; No Murmurs; No JVD Abdominal: NL Sounds; No Tenderness; No Distention Extremities: Left Elbow 1cm big laceration area with surrounding erythema, swelling, warmth up to 2/3 of left arm, elbow area is fluctuating. Lines/Tubes/Other Access: Clean, Dry and Intact Peripheral IV Result Diagrams: 07/17/19 22:25 07/17/19 22:25 Assess/Plan/Problems-Billing Assessment: 23 y/o male with no significant history presented with left elbow increasing erythema after elbow trauma, found to have possible bursitis in US , clinically septic bursitis. - Patient Problems (1) Septic bursitis Current Visit: Yes Status: Acute Code(s): M71.10 - OTHER INFECTIVE BURSITIS , UNSPECIFIED SITE SNOMED Code(s): 522704713 Comment: - Ortho following, aspiration of left olecranon bursa was done, 15cc straw colored fluid was drained - continue IV cefazolin for now based on MSSA result - repeat inflammatory markers tomorrow, if not improving, consider surgical intervention. (2) Tachycardia Current Visit: Yes Status: Acute Code(s): R00.0 - TACHYCARDIA, UNSPECIFIED SNOMED Code(s): 9320265 Comment: - sinus tachycardia ? cause - check tsh tomorrow - put telemetry and monitor (3) DVT prophylaxis Current Visit: Yes Status: Acute Code(s): Z29.9 - ENCOUNTER FOR PROPHYLACTIC MEASURES, UNSPECIFIED SNOMED Code(s): 519786509 Comment: Ambulatory Status and Disposition: Inpatient. Attestation Documenting Resident: Marilyn Ramirez Supervising Physician: Archana Jonse Attestation: This service has been performed in part by a resident under the direction of a teaching physician.I, Archana Jones, performed the service, or was physically present during the critical, or srinivasan portions of the service, furnished by the resident. I participated in the management of the patient.
[2019-07-18] MEDS: Acetaminophen TAB* 325 MG PO PRN ×2 (14:50→23:37)
--- NOTE | 2019-07-18 16:24 | PN ---
Progress Note - Progress Note Date of Service: 07/18/19 Note: Full consult note dictated by KARINA Almanzar. Dx: Septic left olecranon bursitis Plan: I aspirated it. Recommend IV antibiotics tailored to culture and will recheck tomorrow. Surgery only if no improvement.
--- NOTE | 2019-07-18 23:16 | PRO ---
DATE OF PROCEDURE: 07/18/19 - ROOM #415 DATE OF : 89 SURGEON: Nader Mae MD BRASS PICKLER: None. ANESTHESIA: None. PRE-PROCEDURE DIAGNOSIS: Septic left olecranon bursitis. POST-PROCEDURE DIAGNOSIS: Septic left olecranon bursitis. PROCEDURE PERFORMED: Aspiration of left elbow olecranon bursitis. INDICATIONS: Abdoulaye has developed a septic-looking olecranon bursitis. We have been trying to treat this with IV antibiotics. I want to aspirate it to aid with pain control and help it heal up and also to get a culture. He understands his risks associated with any procedure and wants to proceed. ESTIMATED BLOOD LOSS: 2 mL. COMPLICATIONS: None. FINDINGS: See above and below. DESCRIPTION OF PROCEDURE: Abdoulaye was seen, we obtained informed consent. I cleansed the posterolateral elbow with ChloraPrep. I then using sterile technique introduced an 18-gauge needle into the olecranon bursitis. 15 cc of blood-tinged synovial fluid was aspirated. It actually did not look that purulent. This was sent off as aerobic and anaerobic culture. He tolerated the aspiration very well. Dressing was applied. [id number]/[facility] #: [id number] MTDD
[2019-07-19] MEDS: oxyCODONE TAB* 5 MG TAB PO PRN ×5 (00:02→23:40)
[2019-07-19] MEDS: ceFAZolin* 2 GM* Q8H (Duplex) IVPB SCH ×3 (05:41→22:21)
[2019-07-19 06:15] LABS: ABS Eosinophils 0.5 10^3/ul (0-0.6); ABS Lymphocytes 2.1 10^3/ul (1.0-4.8); ABS Monocytes 1.2 10^3/ul (0-0.8); ABS Neutrophils 9.6 10^3/ul (1.5-7.7); Eosinophil % 3.8 %; Hematocrit 46 % (42-52); Hemoglobin 16.2 g/dL (14.0-18.0); Lymphocyte % 15.7 %; Mean Corpuscular HGB Conc 35 g/dL (31-36); Mean Corpuscular Hemoglobin 31 pg (27-31); Mean Corpuscular Volume 88 fL (80-94); Platelet Count 211 10^3/uL (150-450); Red Blood Count 5.27 10^6 /uL (4.18-5.48); Red Cell Distribution Width 13 % (10-15); White Blood Count 13.5 10^3/uL (3.5-10.8)
[2019-07-19 06:38] LABS: BUN/Creatinine Ratio 9.5 (8-20); C Reactive Protein 121.69 mg/L (<8.01); Calcium 9.8 mg/dL (8.6-10.3); EGFR Non-African American 99.1 (>60); Potassium 4.1 mmol/L (3.5-5.0)
[2019-07-19 06:52] LABS: TSH (Thyroid Stimulating Horm) 3.5 mcIU/mL (0.34-5.60)
--- NOTE | 2019-07-19 07:41 | ED ---
Imaging and Labs Follow Up Follow Up Type: Imaging Patient Communication/Plan: Pt admitted to [facility] [place] Imaging Result: swelling of the elbow Patient Communication/Plan: pt admitted Provider Diagnoses: Septic olecranon bursitis of left elbow
--- NOTE | 2019-07-19 07:43 | ED ---
Imaging and Labs Follow Up Follow Up Type: Imaging Labs/Culture Result: impressions prominent soft tissue swelling and old ununited fracture of the Patient Communication/Plan: Patient was admitted Imaging Result: Old epicondyle fx Patient Communication/Plan: Admitted to [facility],ortho consulted, nothing further required Provider Diagnoses: Septic olecranon bursitis of left elbow
--- NOTE | 2019-07-19 11:53 | PN ---
Progress Note - Progress Note Date of Service: 07/19/19 SOAP: Subjective: []Pt seen at bedside. He feels well without fever or chills. Reports his left elbow pain is much improved today. Denies feeling of fever or chills. Objective: []Gen: Appears well, nontoxic appearing LUE: 1cm laceration scabbed over on the L elbow. Erythema is reduced in severity of the elbow and of the forearm. There is nontender erythema over the upper inner arm spanning elbow to axilla. There is no tenderness whatsoever of the LUE. Mild fluid collection over the oceranon, vastly reduced from yesterday , nontender and no drainage. AROM elbow full flexion, extension to 10 degrees. Arm is warm, well perfused, NVI distally. Assessment: []Septic olecranon bursitis of the left elbow. Plan: []The patient can be weightbearing as tolerated. Ice and elevate LUE to decrease swelling/pain On cefazolin, growing MSSA. Cont abx per the medicine team. NPO after midnight to reassess again in the morning CBC and CRP again in the morning, increased from 07/17 today with no lab values yesterday. Exam has improved today Case discussed with Dr Mae, agrees with britney patel to reassess in the morning Vital Signs Temp 98.3 F 07/19/19 07:15 Pulse 83 07/19/19 07:15 Resp 16 07/19/19 07:53 BP 134/73 07/19/19 07:15 Pulse Ox 98 07/19/19 07:15 Intake & Output 07/18/19 07/19/19 07/19/19 18:59 06:59 18:59 Intake Total 1510 840 Balance 1510 840 Intake: IV Fluids 10 NS (0.9%) 10 Medicated IV 60 Cefazolin 60 Oral 1440 840 Other: # Voids 1 Vital Signs Temp 98.3 F 07/19/19 07:15 Pulse 83 07/19/19 07:15 Resp 16 07/19/19 07:53 BP 134/73 07/19/19 07:15 Pulse Ox 98 07/19/19 07:15 Intake & Output 07/18/19 07/19/19 07/19/19 18:59 06:59 18:59 Intake Total 1510 840 Balance 1510 840 Intake: IV Fluids 10 NS (0.9%) 10 Medicated IV 60 Cefazolin 60 Oral 1440 840 Other: # Voids 1
--- NOTE | 2019-07-19 12:40 | PN ---
Hospitalist Progress Note Date of Service: 07/19/19 HPI: Abdoulaye Chandra is a 23 yo M c/ cc of L olecranon pain and swelling. Pt received surgical drainage on 07/18/19 for septic bursitis. Pt states symptoms have improved since IV cefazolin and surgical drainage of bursa. Pt states he no longer has fever/chills. Pt admits to heat at bursa site and spreading warmth and erythema on medial aspect of arm proximally. Pt states pain is 5/10 and is worse in extension. Pt states pain is relieved by elevation of the LUE. Pt states pain is well controlled c/ Oxycodone and Acetaminophen prn. Pt denies SOB, N/V, fever/chills, numbness/tingling, or cold extremities. PE: Temp Pulse Resp BP Pulse Ox 98.3 F 83 16 134/73 98 07/19/19 07:15 07/19/19 07:15 07/19/19 07:53 07/19/19 07:15 07/19/19 07:15 Acetaminophen (Tylenol Tab*) 975 mg PO Q8H PRN PRN Reason: PAIN - MILD Last Admin: 07/18/19 23:37 Dose: 975 mg Cefazolin Sodium/Dextrose (Kefzol 2 Gm Premix In Ors(*)) 2 gm in 50 mls @ 100 mls/hr IVPB Q8H ARACELIS Last Admin: 07/19/19 05:41 Dose: 100 mls/hr Oxycodone HCl (Roxycodone Tab*) 5 mg PO Q4H PRN PRN Reason: Pain - Moderate to Severe Last Admin: 07/19/19 07:53 Dose: 5 mg General: Pt is in no apparent distress lying in bed with L elbow elevated on 1 pillow. Pt is pleasant and responsive during interview. No signs of sepsis. Neuro: A/Ox3 Cardio: RRR. No murmurs, rubs or gallops. Normal S1 and S2. Pulm: Normal breath sounds in all cyr. Extremities: 1cm laceration on elbow with mild fluid collection and no drainage.There is erythema and warmth over bursa site and spreading erythema and warmth on medial aspect of arm proximally towards axilla with well demarcated borders. Erythema/warmth has spread past previous marking and new marking has been drawn. There is FROM active/passive. Normal sensation LUE, motor strength 5/5, Radial pulse 2+ Blt. Capillary refill <2sec. Labs: WBC count was elevated at 13.5 from10 the previous day along c/ increased absolute neutrophil count of 9.6. Cx grew MSSA. MRSA negative. Blood cx was negative. Crp was elevated at 121.69, previously 53.65 Assesment: Abdoulaye Chandra, 23 yo M with a dx of septic bursitis of L olecranon, presenting with improved septic bursitis c/ possiblle cellulitis s/p surgical drainage and showing no signs of sepsis. Patient problems: 1. Septic Bursitis - continue IV cefazolin for MSSA targeted therapy - continue pain management strategy with Acetaminophen and Oxycodone prn - repeat CBC and CRP due to elevated levels on previous labs - continue to monitor for signs of sepsis c/ regular vitals checks - debbie ordered pt be NPO after midnight and be re-assessed in morning for possible surgical intervention if no improvement - continue ice and elevation for pain relief prn
--- NOTE | 2019-07-19 14:13 | PN ---
Subjective Date of Service: 07/19/19 Interval History: Patient is feeling generally better. No fever, no chills, no palpitation overnight. Though he noticed increasing erythema on medial aspect spreading to the arm, but better ROM on elbow area. Objective Active Medications: Acetaminophen (Tylenol Tab*) 975 mg PO Q8H PRN PRN Reason: PAIN - MILD Last Admin: 07/18/19 23:37 Dose: 975 mg Cefazolin Sodium/Dextrose (Kefzol 2 Gm Premix In Ors(*)) 2 gm in 50 mls @ 100 mls/hr IVPB Q8H ARACELIS Last Admin: 07/19/19 05:41 Dose: 100 mls/hr Oxycodone HCl (Roxycodone Tab*) 5 mg PO Q4H PRN PRN Reason: Pain - Moderate to Severe Last Admin: 07/19/19 13:14 Dose: 5 mg Vital Signs - 8 hr 07/19/19 07/19/19 07/19/19 07:15 07:53 09:53 Temperature 98.3 F Pulse Rate 83 Respiratory 12 16 14 Rate Blood Pressure 134/73 (mmHg) O2 Sat by Pulse 98 Oximetry 07/19/19 13:14 Temperature Pulse Rate Respiratory 15 Rate Blood Pressure (mmHg) O2 Sat by Pulse Oximetry Oxygen Devices in Use Now: None Exam: Appearance: alert Respiratory: Clear to Auscultation Cardiovascular: NL Sounds; No Murmurs; No JVD Abdominal: NL Sounds; No Tenderness; No Distention Extremities: Left Elbow erythema, swelling, warmth up to 2/3 of left arm, spreading out of the demarcated area, mild fluctuating. Lines/Tubes/Other Access: Clean, Dry and Intact Peripheral IV Result Diagrams: 07/19/19 05:56 07/19/19 05:56 Assess/Plan/Problems-Billing Assessment: 23 y/o male with no significant history presented with left elbow increasing erythema after elbow trauma, found to have possible bursitis in US , clinically septic bursitis. - Patient Problems (1) Septic bursitis Current Visit: Yes Status: Acute Code(s): M71.10 - OTHER INFECTIVE BURSITIS , UNSPECIFIED SITE SNOMED Code(s): 021111614 Comment: - Ortho following, aspiration of left olecranon bursa was done, 15cc straw colored fluid was drained yesterday - continue IV cefazolin for now based on MSSA result - awaiting surgical team opinion regarding further surgical intervention. (2) Tachycardia Current Visit: Yes Status: Acute Code(s): R00.0 - TACHYCARDIA, UNSPECIFIED SNOMED Code(s): 6739291 Comment: - sinus tachycardia ? cause, probably infection related - Tsh normal - put telemetry and monitor (3) DVT prophylaxis Current Visit: Yes Status: Acute Code(s): Z29.9 - ENCOUNTER FOR PROPHYLACTIC MEASURES, UNSPECIFIED SNOMED Code(s): 046128937 Comment: Ambulatory Status and Disposition: Inpatient. Attestation Documenting Resident: Marilyn Ramirez Supervising Physician: Archana Jones Attestation: This service has been performed in part by a resident under the direction of a teaching physician.I, Archana Jones, performed the service, or was physically present during the critical, or srinivasan portions of the service, furnished by the resident. I participated in the management of the patient.
[2019-07-20] MEDS: ceFAZolin* 2 GM* Q8H (Duplex) IVPB SCH ×2 (06:30→13:45)
[2019-07-20 07:00] LABS: ABS Eosinophils 0.5 10^3/ul (0-0.6); ABS Lymphocytes 1.2 10^3/ul (1.0-4.8); ABS Monocytes 0.9 10^3/ul (0-0.8); ABS Neutrophils 6.7 10^3/ul (1.5-7.7); Eosinophil % 5.2 %; Hematocrit 44 % (42-52); Hemoglobin 15.8 g/dL (14.0-18.0); Mean Corpuscular HGB Conc 36 g/dL (31-36); Mean Corpuscular Hemoglobin 31 pg (27-31); Mean Corpuscular Volume 88 fL (80-94); Mean Platelet Volume 6.7 fL (7.4-10.4); Nucleated Red Blood Cells % 0.3; Platelet Count 206 10^3/uL (150-450); Red Blood Count 5.02 10^6 /uL (4.18-5.48); Red Cell Distribution Width 13 % (10-15); White Blood Count 9.4 10^3/uL (3.5-10.8)
--- NOTE | 2019-07-20 10:11 | PN ---
Progress Note - Progress Note Date of Service: 07/20/19 SOAP: Subjective: []Pt seen at bedside. He feels well without fever or chills. Reports his left elbow pain is much improved today. Feels the erythema is also much improved today. Denies feeling of fever or chills. Objective: []Gen: Appears well, nontoxic appearing LUE: 1cm laceration scabbed over on the L elbow. Erythema is reduced in severity of the elbow and of the forearm and lateral upper arm. There is nontender erythema over the upper inner arm spanning elbow to axilla, there is mild recession of the erythema in the axilla.. There is no tenderness whatsoever of the LUE. Mild fluid collection over the oceranon, continues to improve, nontender and no drainage. AROM elbow full flexion, extension to 5 degrees. Full supination and pronation Arm is warm, well perfused, NVI distally. Vital Signs Temp 98.6 F 07/20/19 03:08 Pulse 88 07/20/19 03:08 Resp 16 07/20/19 03:32 BP 136/73 07/20/19 03:08 Pulse Ox 99 07/20/19 03:08 Intake & Output 07/19/19 07/20/19 07/20/19 18:59 06:59 18:59 Intake Total 490 0 0 Balance 490 0 0 Intake: IV Fluids 50 Oral 440 0 0 Other: # Voids 0 Assessment: []Septic olecranon bursitis of the left elbow. Plan: []The patient can be weightbearing as tolerated. Ice and elevate LUE to decrease swelling/pain On cefazolin, growing MSSA. Cont abx per the medicine team. CRP has fallen to 112 today. Will allow pt to eat. Continue to monitor erythema of medial upper arm.
--- NOTE | 2019-07-20 10:32 | PN ---
Subjective Date of Service: 07/20/19 Interval History: He felt much improved today in general, ROM back to normal. Objective Active Medications: Acetaminophen (Tylenol Tab*) 975 mg PO Q8H PRN PRN Reason: PAIN - MILD Last Admin: 07/18/19 23:37 Dose: 975 mg Cefazolin Sodium/Dextrose (Kefzol 2 Gm Premix In Ors(*)) 2 gm in 50 mls @ 100 mls/hr IVPB Q8H ARACELIS Last Admin: 07/20/19 06:30 Dose: 100 mls/hr Oxycodone HCl (Roxycodone Tab*) 5 mg PO Q4H PRN PRN Reason: Pain - Moderate to Severe Last Admin: 07/19/19 23:40 Dose: 5 mg Vital Signs - 8 hr 07/20/19 07/20/19 03:08 03:32 Temperature 98.6 F Pulse Rate 88 Respiratory 16 16 Rate Blood Pressure 136/73 (mmHg) O2 Sat by Pulse 99 Oximetry Oxygen Devices in Use Now: None Exam: Appearance: alert Respiratory: Clear to Auscultation Cardiovascular: NL Sounds; No Murmurs; No JVD Abdominal: NL Sounds; No Tenderness; No Distention Extremities: Left Elbow erythema, swelling, warmth up to 2/3 of left arm, improved from yesterday Lines/Tubes/Other Access: Clean, Dry and Intact Peripheral IV Result Diagrams: 07/20/19 06:26 07/19/19 05:56 Assess/Plan/Problems-Billing Assessment: 23 y/o male with no significant history presented with left elbow increasing erythema after elbow trauma, found to have possible bursitis in US , clinically septic bursitis. - Patient Problems (1) Septic bursitis Status: Acute Code(s): M71.10 - OTHER INFECTIVE BURSITIS, UNSPECIFIED SITE SNOMED Code(s): 247946965 Comment: - Ortho following, aspiration of left olecranon bursa was done, 15cc straw colored fluid was drained - continue IV cefazolin for now based on MSSA result, will go home with po Keflex to complete 10 days (2) Tachycardia Status: Acute Code(s): R00.0 - TACHYCARDIA, UNSPECIFIED SNOMED Code(s): 8877401 Comment: - sinus tachycardia ? cause, probably infection related - Tsh normal - put telemetry and monitor (3) DVT prophylaxis Status: Acute Code(s): Z29.9 - ENCOUNTER FOR PROPHYLACTIC MEASURES, UNSPECIFIED SNOMED Code(s): 771099053 Comment: Ambulatory Status and Disposition: Discharge today Attestation Documenting Resident: Marilyn Ramirez Supervising Physician: Archana Jones Attestation: This service has been performed in part by a resident under the direction of a teaching physician.I, Archana Jones, performed the service, or was physically present during the critical, or srinivasan portions of the service, furnished by the resident. I participated in the management of the patient.
--- NOTE | 2019-07-20 11:54 | PN ---
Hospitalist Progress Note Date of Service: 07/20/19 HPI: Abdoulaye is a 23 yo M who is feeling "the best I have felt." Pt states he slept well through the night. Pt states swelling has decreased. Pain is relieved with elevation and ice. Pt states pain is well controlled with current medication regiment. Pt denies fever/chills, DU, palpitations, N/V, or numbness/tingling in extremities. PE: Temp Pulse Resp BP Pulse Ox 98.4 F 87 18 143/62 99 07/20/19 07:38 07/20/19 07:38 07/20/19 07:38 07/20/19 07:38 07/20/19 07:38 Acetaminophen (Tylenol Tab*) 975 mg PO Q8H PRN PRN Reason: PAIN - MILD Last Admin: 07/18/19 23:37 Dose: 975 mg Cefazolin Sodium/Dextrose (Kefzol 2 Gm Premix In Ors(*)) 2 gm in 50 mls @ 100 mls/hr IVPB Q8H ARACELIS Last Admin: 07/20/19 06:30 Dose: 100 mls/hr Oxycodone HCl (Roxycodone Tab*) 5 mg PO Q4H PRN PRN Reason: Pain - Moderate to Severe Last Admin: 07/19/19 23:40 Dose: 5 mg General: Well appearing 23 yo M laying in bed with L elbow elevated on 2 pillows. Cardio: RRR. Normal S1 and S2. No MRG. Pulm: clear in all cyr to auscultation. Extremities: L elbow has mild fluid collection with erythema spreading to medial arm towards axilla but has not exceeded previous markings. Non-tender to palpitation. Warm to the touch but improved from previous exam. Wound covered c / bandage; no drainage seen. Labs: WBC (9.4) WNL and CRP (112.23) trending towards normal limits. Assesment: 23 yo M without significant Mhx presents c/ MSSA+ septic bursitis s/p trauma. Plan: #septic bursitis -Dx c/ culture to be MSSA+ -MRSA ruled out c/ cx -does not meet sepsis criteria -continue MSSA targeted therapy c/ IV cefazolin -f/u c/ cefalexin PO upon DC -f/u c/ PCP on completion of abx course or worsening s/s
[2019-07-20] MEDS: Acetaminophen TAB* 325 MG PO PRN (11:58)
[2019-07-20 13:21] VITALS: BP 146/68
--- NOTE | 2019-07-20 17:48 | DS ---
Resident Discharge Summary Discharge Summary: Date of Admission: 07/19/19 Date of Discharge: 07/20/19 Admitting MD: Nader Espinal MD Attending MD: Archana Jones MD Primary Care Physician: Lee Steel MD Home Medications Medication Instructions Recorded Confirmed Type Acetaminophen [Mapap] 1,000 mg PO Q8H PRN #90 tablet 07/20/19 Rx Cephalexin CAP* [Keflex CAP*] 500 mg PO TID 8 Days cap 07/20/19 Rx oxyCODONE TAB* [Roxycodone TAB 5 5 mg PO Q6H PRN #10 tab MDD 20 mg 07/20/19 Rx mg*] Disposition: Stable to Home Condition: Stable Primary Diagnosis: 1. Infection of left olecranon bursa Secondary Diagnosis: 1. History of Panic disorder 2. History of right knee meniscus tear 3. History of right ACL tear and repair 4. Left shoulder torn labrum and repair 5. Multiple dislocated fingers with repair 6. History of acute interstitial nephritis in the setting of NSAIDs Diagnostic Imaging: Soft tissue U/S: posterior left elbow bursitis vesus evolving hematoma. Left Elbow XRay: prominent soft tissue swelling, old ununited fracture of the medial epicondyle. 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 On the day of presentation, his left elbow is increasingly swollen, red and painful with restricted range of movement, he although had subjective fever. He was found to have white count of 10.0, CRP 53 on the day of presentation. Ultrasound of his left elbow showed bursitis vs evolving hematoma with loculated hypoechoic collection with internal septations seen. He was started on IV cefazolin and surgical consult was obtained due to mass effect of bursitis. He had left olecranon bursa aspiration on D2 admission, 15cc of straw colored fluid was removed, it showed bloody fluid with neutrophil dorminant, fluid culture came back afterward showed MSSA. Patient had great improvement with aspiration as well as IV abx, noticeably afebrile since admission, WBC and CRP is downtrending, erythema and swelling is improving on the day of discharge. His blood culture obtained on admission revealed negative. He will continue oral antibiotics outpatient to complete 10 days of courses as treatment. Other medical problem during his stay is sinus tachycardia which is likely related to his infection, EKG showed sinus tachy with normal intervals, and his tachycardia resolved on the day of discharge. On the day of discharge, patient felt much improved, afebrile, left elbow swelling was improved and erythema not worsening, range of movement of left elbow was full. Further oral antibiotic treatment plan was discussed with him, and he agreed on it. Follow Up Instructions: Abdoulaye will continue oral Keflex for another 8 days to complete 10 days of course. He will follow up with his primary care Dr. Steel within 1 week. He was given a short course of oxycodone for pain, given h/o overuse of NSAIDs resulting in kidney injury. He was educated to return to the hospital with worsening elbow pain, swelling, or new symptoms of fever or drainage. In case of an emergency or after clinic hours, please go to your nearest Emergency Department. You may also call the [facility] brushing operator at .
== END 2019-07-20 15:00 | disposition home or self-care (01) | DRG 351 ==
LOC: ED 21:31 → MED 07-18 01:18 → OBSVTOIN 07-19 16:00
PROVIDERS: ADMIT Internal Medicine; ATTEND Internal Medicine
PROC: 0R9M3ZX Drainage of Left Elbow Joint, Percutaneous Approach, Diagnostic (ICD-10-PCS; principal; 2019-07-18)
PROC: 0R9M3ZX Drainage of Left Elbow Joint, Percutaneous Approach, Diagnostic (ICD-10-PCS; 2019-07-20)
DX: M71.122 Other infective bursitis, left elbow (principal); B95.61 Methicillin susceptible Staphylococcus aureus infection as the cause of diseases classified elsewhere; F41.0 Panic disorder [episodic paroxysmal anxiety]; R00.0 Tachycardia, unspecified; Z82.49 Family history of ischemic heart disease and other diseases of the circulatory system; Z80.42 Family history of malignant neoplasm of prostate
CPT/HCPCS: 36415; 80048; 80053; 84443; 85025; 86140; 87040; 87070; 87073; 87077; 87102; 87186; 87205; 87640; 87641; 89051; 93005; 96365; 99283; A9270-GY; G0378; J0690